=== PATIENT | male | born 1960 | race Hispanic/Latino ===

== ENCOUNTER 2016-09-24 18:59 | Inpatient (IN) ==
[2016-09-24 19:47] LABS: MANUAL DIFF NEEDED? NO
[2016-09-24 19:52] LABS: BASO% 0.4 % (0.0-0.8); EOS# 0.28 X1000 (0.0-0.7); EOS% 2.6 % (0.0-10.0); HEMATOCRIT 28.3 % (42.0-52.0); HEMOGLOBIN 9.4 g/dL (14.0-18.0); IMM GRAN# 0.03 X1000 (0.0-0.04); IMM GRAN% 0.3 % (0.0-0.5); LYMPH# 1.18 X1000 (1.2-3.4); LYMPH% 10.8 % (20.5-51.1); MCHC 33.2 g/dL (33-37); MCV 87.3 FL (81-99); MONO# 0.63 X1000 (0.11-0.59); MONO% 5.8 % (1.7-9.3); MPV 9.2 FL (7.4-10.4); NEUT% 80.1 % (42.2-75.2); PLT 328 X1000 (130-400); RBC 3.24 XMIL (4.7-6.1)
[2016-09-24] MEDS ORDERED: NORCO-5 PO ONE (19:54)
--- NOTE | 2016-09-24 19:54 | PROVIDER DOCUMENTATION ---
HPI-Musculoskeletal Pain/Inj - GENERAL Chief Complaint: Extremity Injury Stated Complaint: RT FT PAIN/INFECTION Time Seen by Provider: 09/24/16 19:12 Source: patient - HX OF PRESENT ILLNESS-MUSKULOSKELTAL Nature of Presenting Problem: 56 y/o male IDDM c/o ulcer on the right great toe after he originally hit it 2 weeks ago and fell, twisting the right foot and hitting the left rib cage. States that a blister then formed on the right great toe, and popped, leaving an open sore. Patient continued wearing steel toed boots and states the lesion began to grow over the past 2 weeks. Put topical antibiotics on it daily , except the past 2 days. States is BG runs in 200s typically. subjective fevers and chills. Denies abdominal pain, n/v/d. States he is also having lateral right foot pain that is sharp, radiates to the ankle when walking on it. Also having pain with deep inspiration in the left ribs. Denies chest pain. Review of Systems - Adult - REVIEW OF SYSTEMS - ADULT Constitutional: reports: see HPI, chills, fever. denies: fatique Eyes: reports: no symptoms reported. denies: blurred vision, double vision, eye pain Ears, Nose, Mouth & Throat: reports: no symptoms reported. denies: ear pain, nose pain, throat pain Cardiovascular: reports: no symptoms reported. denies: chest pain, irregular heart rate, palpitations Respiratory: reports: no symptoms reported. denies: cough, shortness of breath Gastrointestinal: reports: no symptoms reported. denies: abdominal pain, diarrhea, nausea, vomiting Genitourinary: reports: no symptoms reported. denies: dysuria, discharge, frequency, incontinence Musculoskeletal: reports: see HPI, muscle aches Integumentary: reports: see HPI, skin sores/ulcer Neurological: reports: no symptoms reported. denies: headache/migraines Psychiatric: reports: no symptoms reported Endocrine: reports: no symptoms reported Hematologic/Lymphatic: reports: no symptoms reported Allergic/Immunologic: reports: no symptoms reported All Other Systems: Reviewed and Negative Past History - Adult - PAST MEDICAL HISTORY-ADULT Review of Records: reports: Old Records Reviewed, Nursing Assessment Review, Medications Reviewed, Social history reviewed & non-contributory. Major Childhood Illnesses: reports: denies history Cardiovascular: reports: denies history Respiratory: reports: denies history Gastrointestinal: reports: denies history Genitourinary: reports: denies history Musculoskeletal: reports: denies history Neurological: reports: denies history Endocrine/Immune: reports: Diabetes Diabetes controlled by:: Insulin Dependent Other Conditions: reports: denies history - IMMUNIZATION STATUS Childhood Immunizations: See Nurse Assessment Flu Vaccine: See Nurse Assessment - FAMILY HISTORY Family History: reviewed, not pertinent Physical Exam-Injury Related - Physical Exam-Injury Related Initial Vital Signs Reviewed: Yes General Appearance: appears well, alert, no apparent distress Eyes: PERRL/EOMI, pink conjunctivae Head, Ears, Nose, Mouth & Throat: normocephalic/atraumatic, moist mucous membranes Neck: non-tender, full range of motion, supple, normal inspection Respiratory: chest non-tender, lungs clear, normal breath sounds, no pleuratic chest pain, no respiratory distress, no accessory muscle use. negative: respiratory distress, decreased breath sounds, accessory muscle use, crackles, rales, rhonchi, stridor, wheezing Cardiovascular: normal peripheral pulses, regular rate, rhythm Peripheral Pulses: dorsalis-pedis (R): 2+, dorsalis-pedis (L): 2+ Extremity: other (there is a necrotic ulcer on the pad of the right great toe, and a diabetic ulcer on the medial edge of the right great toe) Integumentary: normal color, warm/dry Neurologic: grossly normal, no motor/sensory deficits Psych/Mental Status: normal mood/affect, normal thought content, normal thought process, oriented x 3 - Glascow Coma Score Best Eye Response ([place]): (4) open spontaneously Best Verbal Response ([place]): (5) oriented Best Motor Response ([place]): (6) obeys commands Progress - PLAN OF CARE/RESULTS Progress/Plan/Lab Results: Vital Signs Temp Pulse Resp BP Pulse Ox 09/24/16 19:14 98.8 F 112 H 18 192/92 100 No Known Allergies Allergy (Verified 12/21/14 23:31) Laboratory 09/24/16 09/24/16 09/24/16 19:30 19:30 19:17 WBC 10.95 H RBC 3.24 L Hgb 9.4 L Hct 28.3 L MCV 87.3 MCH 29.0 MCHC 33.2 RDW Std Deviation 13.8 Plt Count 328 MPV 9.2 Immature Gran % (Auto) 0.3 Neut % (Auto) 80.1 H Lymph % (Auto) 10.8 L Campbell % (Auto) 5.8 Eos % (Auto) 2.6 Baso % (Auto) 0.4 Immature Gran # (Auto) 0.03 Neut # (Auto) 8.79 H Lymph # (Auto) 1.18 L Campbell # (Auto) 0.63 H Eos # (Auto) 0.28 Baso # (Auto) 0.04 Sodium 136 Potassium 4.5 Chloride 101 Carbon Dioxide 22 L Anion Gap 13 BUN 32 H Creatinine 2.5 H Estimated GFR/1.73 m2 27 BUN/Creatinine Ratio 13 Glucose 114 H POC Glucose 145 H Calculated Osmolality 280 Calcium 8.6 L Total Bilirubin 0.35 AST 45 H ALT 44 Alkaline Phosphatase 129 H Total Protein 7.4 Albumin 2.5 L Globulin 4.9 Albumin/Globulin Ratio 0.5 Orders Category Date Time Status Saline Loc NOW Care 09/24/16 19:39 Active CHEST-2 VIEWS [RAD] Stat Exams 09/24/16 19:39 Taken TOE(S)-RIGHT [RAD] Stat Exams 09/24/16 19:47 Taken BLOOD CULTURE [BLDCUL] Stat Lab 09/24/16 19:30 Results CBC WITH ELECTRONIC DIFF [HEME] Stat Lab 09/24/16 19:30 Completed COMPREHENSIVE METABOLIC PANEL [CHEM] Stat Lab 09/24/16 19:30 Completed CULTURE [ABSCESS CULTURE INC GRAM STAIN] [RM] Routine Lab 09/24/16 19:45 Results Clonidine [Catapres] Med 09/24/16 20:21 Discontinued 0.1 mg PO NOW ONE Hydrocodone/APAP 5 mg/325 mg [[place]-5] Med 09/24/16 19:54 Discontinued 1 each PO NOW ONE Piperacil/Tazobact 3.375 gm/Ns [Zosyn 3.375 gm/Ns] 50 Med 09/24/16 20:18 Discontinued ml IV NOW - XRAY 1 XRAY: Right XRAY Study: Foot Impression: Abnormal (osteomyelitis of the great toe, per Dr. Vyas, ER prelim) 2 XRAY: Bilateral XRAY Study: Chest Impression: Abnormal (RML infiltrate per Dr. Vyas, ER prelim) - CONSULTS/PCP/HOSPITALIST Notification #1 *Consult/PCP/Hospitalist*: Dr. Loera, hospitalist Time Discussed: 20:59 Reason/Comments: diabetic ulcer with osteomyelitis of the right great toe Consult Disposition: Admit Departure - Departure Time of Disposition Order: 20:19 DIAGNOSIS: Diabetic foot ulcer with osteomyelitis Disposition: ADMITTED INPATIENT 09 Certified Medical Emergency: Emergent Condition: Stable Referrals: None,PCP [Primary Care Provider] - Attestation - Physician/ TAYLOR Attestation Patient care was provided by Advanced Practice Provider:: Yes Advanced Practice Provider:: Kadie Triana Advanced Practice Provider documentation review:: The Mid-level provider documentation, treatment plan and medical decision making was reviewed by the physician who agrees with all treatment and medical decision making by the MLP.
[2016-09-24 20:03] LABS: ALBUMIN 2.5 g/dL (3.5-5.0); CALCIUM 8.6 mg/dL (8.8-10.2); POTASSIUM 4.5 mmol/L (3.5-5.1); TOTAL BILIRUBIN 0.35 mg/dL (0.20-1.00); TOTAL PROTEIN 7.4 g/dL (6.3-8.3)
[2016-09-24] MEDS ORDERED: ZOSYN 3.375 GM/NS 50 ML IV ONE (20:18)
[2016-09-24] MEDS ORDERED: CATAPRES PO ONE (20:21)
[2016-09-24] MEDS ORDERED: NS 1,000 ML IV ONE (21:01)
--- NOTE | 2016-09-24 22:11 | HISTORY AND PHYSICAL ---
CHIEF COMPLAINT: Right great toe infection. HISTORY OF PRESENTING ILLNESS: A 56-year-old male with a history of diabetes mellitus type 1 on insulin, hypertension, apparently has not been seeing a physician, presented to emergency department with complaint of infection on his right great toe. He states that it started about 3- 1/2 weeks ago as a blister and then it opened up because he apparently was working nonstop and standing on his feet for the past 3 weeks. Over the course of several days prior to coming to the hospital, the wound started opening up and became foul smelling. He was seen in the ER, and imaging was done which did show osteomyelitis and due to his presenting symptoms, he would need hospitalization for further management. At the time of my examination, he had denied any headaches, visual changes, nausea, vomiting, diarrhea, fever, chills, chest pain, shortness of breath, hemoptysis or any weight changes but complained of feet swelling and pain in his right great toe. PAST MEDICAL HISTORY: Includes diabetes mellitus type 1 and hypertension. PAST SURGICAL HISTORY: Right foot surgery and appendectomy. ALLERGIES: Steroids. CURRENT MEDICATIONS: As listed in MAR. SOCIAL HISTORY: He denies any history of smoking, alcohol or illicit drug use. FAMILY HISTORY: No history of coronary disease. REVIEW OF SYSTEMS: Twelve point review of systems is as in HPI. Other systems negative. PHYSICAL EXAMINATION: GENERAL: Cooperative, friendly male. He is resting comfortably now. VITAL SIGNS: Temperature 98.8 degrees, pulse 112, respiration 18, blood pressure 192/92, he is saturating 100%. HEENT: Atraumatic, normocephalic. Extraocular movements intact. PERRLA. NECK: Supple. CHEST: Clear to auscultation. CARDIOVASCULAR: Regular rate, rhythm. ABDOMEN: Soft, nontender. Positive bowel sounds. EXTREMITIES: Right great toe seems infected and seems to look ulcerated. : No bladder distention. SKIN: Warm. LABORATORIES AND STUDIES: Sodium 136, potassium 4.5, chloride 101, CO2 22, BUN is 32, creatinine is 2.5. Glucose is 114. WBC 10.95, hemoglobin 9.4, hematocrit 28.3, platelets 328,000. ASSESSMENT: A 56-year-old male with a history of diabetes mellitus type 1 and hypertension presented to emergency department with 3 weeks history of ulceration in his right great toe. He had imaging done, which did show osteomyelitis. Patient will need hospitalization for further management. 1. Right great toe infection/osteomyelitis. 2. Diabetes mellitus type 2. 3. Hypertension. PLAN: 1. We will admit patient to medical floor with telemetry. 2. We will start patient on IV antibiotics and check wound culture. 3. We will consult infectious disease. 4. We will monitor blood glucose and continue patient on sliding scale insulin regimen. 5. Monitor blood pressure. Resume antihypertensive agents. 6. We will put patient on DVT prophylaxis with heparin. 7. Will continue to follow and reassess.
[2016-09-24] MEDS ORDERED: VANCOMYCIN IV PER PHARMACY MISC SCH (22:17)
[2016-09-24] MEDS: NS 1,000 ML IV SCH (23:20)
[2016-09-24] MEDS: INVANZ 1 GM/NS 50 ML IV SCH (23:20)
[2016-09-25] MEDS: VANCOMYCIN 2 GM in NS 500 ML IV SCH (01:15)
[2016-09-25] MEDS: TYLENOL PO PRN ×2 (05:30→16:03)
[2016-09-25] MEDS: NS 1,000 ML IV SCH ×2 (06:35→15:56)
--- NOTE | 2016-09-25 07:52 | Diag Imaging Result Document ---
PROCEDURE NAME: TOE(S)-RIGHT - 09/24/2016 RIGHT GREAT TOE, THREE VIEWS: FINDINGS: There is erosion of the head of the proximal phalanx medially associated with a skin ulcer. There may be sight erosion of the adjacent portion of the distal phalanx. These findings were not present on 01/21/2012. There is healing of the distal fifth metatarsal compared to previous study, at which point it was fractured and eroded. IMPRESSION: Osteomyelitis in the distal proximal phalanx of the great toe.
[2016-09-25] MEDS: HUMULIN R SUBQ SCH ×4 (08:05→20:36)
--- NOTE | 2016-09-25 08:12 | Diag Imaging Result Document ---
PROCEDURE NAME: CHEST-2 VIEWS - 09/24/2016 TWO VIEWS OF THE CHEST: FINDINGS: There is atelectasis present in the middle lobe. Otherwise, the lungs are clear and the heart and pulmonary vascularity are stable in appearance. IMPRESSION: Right middle lobe atelectasis.
[2016-09-25 09:16] LABS: MANUAL DIFF NEEDED? NO
[2016-09-25 09:55] LABS: CALCIUM 7.7 mg/dL (8.8-10.2); POTASSIUM 4.1 mmol/L (3.5-5.1)
[2016-09-25 10:13] LABS: BASO% 0.6 % (0.0-0.8); EOS# 0.41 X1000 (0.0-0.7); EOS% 6.2 % (0.0-10.0); HEMATOCRIT 23.4 % (42.0-52.0); HEMOGLOBIN 7.6 g/dL (14.0-18.0); IMM GRAN# 0.02 X1000 (0.0-0.04); IMM GRAN% 0.3 % (0.0-0.5); LYMPH# 0.91 X1000 (1.2-3.4); LYMPH% 13.8 % (20.5-51.1); MCH 28.5 PG (27-31); MCHC 32.5 g/dL (33-37); MCV 87.6 FL (81-99); MONO# 0.51 X1000 (0.11-0.59); MONO% 7.8 % (1.7-9.3); MPV 9.5 FL (7.4-10.4); NEUT% 71.3 % (42.2-75.2); PLT 225 X1000 (130-400); RBC 2.67 XMIL (4.7-6.1)
[2016-09-25] MEDS: HEPARIN SUBQ SCH ×2 (10:29→20:37)
[2016-09-25] MEDS: NORVASC PO SCH (10:29)
[2016-09-25] MEDS ORDERED: APRESOLINE IV PRN (12:13)
--- NOTE | 2016-09-25 12:32 | PROGRESS NOTE ---
DATE: 09/25/2016 SUBJECTIVE: The patient stated he is feeling a little better today. He denies having any fever or chills. Still having pain in his right foot. OBJECTIVE: Vital signs: Blood pressure 171/93, pulse of 79, respirations 20, temperature of 98 degrees, saturations are 97% on room air. General appearance: Well-developed, well-nourished, male, in no acute distress. HEENT: Anicteric. Clear conjunctivae. Neck: Supple. No JVD. No bruit. Cardiovascular: S1, S2. Normal rate and rhythm. No murmur, rubs, or gallops. Pulmonary: Clear to auscultation bilaterally. GI: Soft, nontender, nondistended. Normoactive bowel sounds. Musculoskeletal: He has right great toe cellulitis, excoriated, and with a foul odor. LABORATORY: Sodium 133, potassium 4.1, chloride 102, bicarb 20, BUN 30, creatinine 2.4, glucose 101. X-ray showed osteomyelitis on the distal phalanx of his right toe. ASSESSMENT AND PLAN: This is a 56-year-old admitted to the hospital for diabetic ulcer and osteomyelitis. 1. Osteomyelitis. Surgery was consulted and culture was obtained. The patient is on broad- spectrum antibiotics. Most likely, he will need amputation of his toe or long-term antibiotics. Will wait for culture. We will consider ID consult if needed. 2. Diabetes type 2, insulin requiring. We will continue sliding scale insulin and diabetic diet. 3. Acute renal failure. Most likely has chronic kidney disease but we do not have a baseline, but most likely at least stage 3 chronic kidney disease. We will continue IV fluid and we will determine the stage later on when his renal function has stabilized. 4. Hypertension. We will continue Norvasc and will add hydralazine p.r.n. for blood pressure since the patient is not able to take diuretics or SOCO inhibitor at this point. 5. Deep vein thrombosis prophylaxis. The patient is on heparin. 6. Code status. The patient is a full code.
[2016-09-25] MEDS: INVANZ 1 GM/NS 50 ML IV SCH (23:02)
[2016-09-26] MEDS: TYLENOL PO PRN
[2016-09-26] MEDS: HUMULIN R SUBQ SCH ×3 (06:25→17:19)
--- NOTE | 2016-09-26 11:24 | CONSULTATION ---
DATE OF CONSULTATION: 09/26/2016 REQUESTING PHYSICIAN: Kendrick Street MD REASON FOR CONSULTATION: Consult concerning right great toe and osteomyelitis. HISTORY OF PRESENT ILLNESS: A 56-year-old general with longstanding diabetes, hypertension, who presented to the emergency department with complaint of infection of the right great toe. He says it initially started as a blister and then opened up. It has been draining non-stop. He was evaluated emergency department by the hospitalist service, admitted, and started on IV antibiotics. He has had imaging suggesting he has osteomyelitis of that toe. He was initially reluctant to have any surgical intervention, but now has agreed to have surgical intervention. When I evaluated the patient, he is complaining of still some foul drainage from it, but no other changes. He does have some discomfort at that area. PAST MEDICAL HISTORY: Diabetes mellitus type 1 and hypertension. PAST SURGICAL HISTORY: Includes previous right foot surgery and appendectomy. ALLERGIES: Reported to steroids. HOME MEDICATIONS: Reviewed. Of note on his MAR, he is on vancomycin. SOCIAL HISTORY: Denies smoking, alcohol, or illicit drugs. FAMILY HISTORY: Reviewed with the patient. No family history of coronary artery disease. REVIEW OF SYSTEMS: A full 10 point review of systems obtained. Negative unless as specified in HPI. PHYSICAL EXAMINATION: Vital Signs: The patient is currently afebrile. Temperature 98.0 degrees, pulse is regular at 83, respiratory nonlabored at 16, blood pressure 174/94, O2 saturation 98% on room air. General examination: No acute distress. Alert, interactive, male who looks his stated age. HEENT: Normocephalic, atraumatic. Pupils equal, round, react to light. Mucous membranes moist. Oropharynx benign. Neck: Supple. Trachea midline. Cardiovascular: Regular rate and rhythm. Lungs: Grossly clear. Abdomen: Soft, nontender, nondistended. Extremities: Right great toe with edema and swelling noted. No open wound. Foul-smelling drainage consistent with infection of the right great toe. Vascular: All extremities perfused. Neurologic: Grossly intact. Skin: Noted above. LABORATORY: Of note, the patient's white blood cell count 6, down from 10 from on admission. Hematocrit 23.4, platelet count 225,000. Remainder of labs reviewed from yesterday. Imaging from yesterday reviewed. His toe x-ray that confirms the osteomyelitis of the distal phalanx of the great toe on the right. ASSESSMENT AND PLAN: A 56-year-old gentleman with longstanding diabetes mellitus, type 1, now with osteomyelitis and gangrene of the right great toe. 1. Gangrene of the right great toe with osteomyelitis. At this time the patient needs amputation. Discussed with the patient. Discussed with him that likely will have to have an open wound which will cause some delay in the wound healing. Discussed this might cause him not to have work for several months. He voiced understanding and wished to proceed with procedure. 2. Multiple medical comorbidities. At this time, being managed by the hospitalist service. I appreciate the consult.
[2016-09-26] MEDS ORDERED: FENTANYL ONE (13:34)
[2016-09-26] MEDS ORDERED: VERSED ONE (13:35)
[2016-09-26] MEDS ORDERED: DIPRIVAN 1% ONE (13:35)
[2016-09-26] MEDS ORDERED: ZOFRAN ONE (13:47)
[2016-09-26] MEDS ORDERED: XYLOCAINE-MPF 2% ONE (13:48)
[2016-09-26] MEDS ORDERED: EPHEDRINE ONE (13:48)
--- NOTE | 2016-09-26 14:03 | OPERATIVE NOTE ---
PROCEDURE DATE: 09/26/2016 PREOPERATIVE DIAGNOSIS: Right great toe gangrene with osteomyelitis. POSTOPERATIVE DIAGNOSIS: Right great toe gangrene with osteomyelitis. PROCEDURES: Right great toe amputation. SURGEON: Eliceo Salas MD. SHINGLE INSPECTOR: None. ANESTHESIA: General endotracheal. INTRAOPERATIVE FINDINGS: As above. SPECIMENS REMOVED: Right great toe. ESTIMATED BLOOD LOSS: 30 mL. BRIEF HISTORY: The patient is a 56-year-old, male with long-standing diabetes. He developed an ulcer wound to his right great toe. It has continued to worsen. He developed osteomyelitis. Given this, we discussed with the patient about amputation. The risks, benefits, alternatives were discussed. He voiced understanding and wished to proceed with procedure. DESCRIPTION OF PROCEDURE: After informed consent was obtained, patient was brought to the operative theatre, transferred to the operating table and placed in the supine position. General endotracheal anesthesia was then performed without complication. A formal time-out was then performed confirming patient, date, procedure. All were in agreement. At that time, attention was given to the right foot. This area was prepped and draped in a sterile fashion after that and after the time-out, we made an incision along the edge of the right great toe and carried down to the subcutaneous tissue to the bone. We took the distal phalanx of the bone at that point, we did have to take some of the metatarsal head proximally with this, given the infection. We removed this with a combination of sharp dissection and bone cutters. Bovied down to healthy bone. We scored this area to promote granulation and closed the area loosely in layers using 3-0 Vicryl and 2-0 nylon for the skin. Hemostasis was achieved with electrocautery. The patient tolerated the procedure well and had a sterile dressing applied. He was transferred back to recovery room in stable condition.
[2016-09-26] MEDS: VANCOMYCIN 2 GM in NS 500 ML IV SCH (15:09)
[2016-09-26] MEDS: HEPARIN SUBQ SCH ×2 (15:27→20:14)
[2016-09-26] MEDS: NORCO-10 PO PRN ×2 (15:27→19:22)
[2016-09-26] MEDS: NORVASC PO SCH (15:28)
[2016-09-26] MEDS: NS 1,000 ML IV SCH ×2 (15:37→18:11)
--- NOTE | 2016-09-26 15:56 | PROGRESS NOTE ---
DATE: 09/26/2016 SUBJECTIVE: The patient just back from the OR for and had the great right toe amputated. He has no complaint. Appears to be comfortable at present. He asked for ice today. He does not want any food. OBJECTIVE: Vital Signs: Blood pressure 160/90, pulse of 90, respirations 16, temperature of 98.7 degrees. Saturation of 99% on room air. General Appearance: Well-developed, well-nourished, male, in no acute distress. HEENT: Anicteric. Clear conjunctivae. Neck: Supple. No JVD. No bruit. Cardiovascular: S1, S2. Normal rate and rhythm. No murmur, rubs, or gallop. Pulmonary: Clear to auscultation bilaterally. GI: Soft, nontender, nondistended. Normoactive bowel sounds. Musculoskeletal: Right foot with dressing in place. LABORATORY: White count 6.58, hemoglobin 7.6, hematocrit of 23.4, platelets 225 ,000. Chemistry: Sodium 133, potassium 4.1, chloride 102, bicarbonate 20. BUN 30, creatinine 2.4 , glucose of 101. ASSESSMENT AND PLAN: This is a 56-year-old, male, with type 2 diabetes uncontrolled presented with right foot diabetic ulcer on the great toe. 1. Great toe ulcer status post amputation of the source, has osteomyelitis. We will continue antibiotics for about 48 hours and then we will stop antibiotics unless the patient has signs or symptoms of bacteremia. Culture is still pending. 2. Diabetes. We will check his A1c. We will continue sliding scale insulin. 3. Positive wound culture. We will continue vancomycin and ertapenem which does not have Pseudomonas coverage. 4. Hypertension. Resume his home medications and hydralazine p.r.n. 5. Chronic kidney disease stage 3. We will continue IV fluid. We will monitor his renal function. 6. Deep vein thrombosis prophylaxis. Put the patient on heparin. CODE STATUS: The patient is a full code. MTDD
[2016-09-26] MEDS: MERREM 500 MG in NS 50 ML IV SCH (18:11)
[2016-09-27] MEDS: HUMULIN R SUBQ SCH ×5 (01:10→21:24)
[2016-09-27] MEDS: MERREM 500 MG in NS 50 ML IV SCH ×2 (01:10→13:26)
[2016-09-27] MEDS: ZOFRAN IV PRN ×2 (01:13→08:11)
[2016-09-27] MEDS: NS 1,000 ML IV SCH ×2 (05:43→16:58)
--- NOTE | 2016-09-27 06:12 | PROGRESS NOTE ---
DATE: 09/27/2016 SUBJECTIVE: Patient doing well after his toe amputation. OBJECTIVE: Vital Signs: Patient is currently afebrile. His vital signs are stable. General: Resting comfortably. No acute distress. Cardiovascular: Regular rate and rhythm. Lungs: Grossly clear. Abdomen: Soft, nontender, nondistended. Extremities: Amputation site with dressing in place. ASSESSMENT AND PLAN: A 56-year-old, status post right great toe amputation. Postoperative day: At this time, continue routine postoperative care. We will take down his dressing on postoperative day 3 and evaluate the wound; otherwise, continue current treatment. My partner, Dr. Moreno, will follow over the weekend.
[2016-09-27] MEDS: NORVASC PO SCH (08:41)
[2016-09-27] MEDS: HEPARIN SUBQ SCH ×2 (08:41→21:23)
[2016-09-27 10:54] LABS: MANUAL DIFF NEEDED? NO
[2016-09-27 11:18] LABS: HEMOGLOBIN A1C 6.3 % (4.8-6.0)
[2016-09-27 11:23] LABS: BASO% 1.6 % (0.0-0.8); EOS# 0.43 X1000 (0.0-0.7); EOS% 8.9 % (0.0-10.0); HEMATOCRIT 25.7 % (42.0-52.0); HEMOGLOBIN 8.2 g/dL (14.0-18.0); IMM GRAN# 0.04 X1000 (0.0-0.04); IMM GRAN% 0.8 % (0.0-0.5); LYMPH# 0.91 X1000 (1.2-3.4); LYMPH% 18.8 % (20.5-51.1); MCH 28.4 PG (27-31); MCHC 31.9 g/dL (33-37); MCV 88.9 FL (81-99); MONO# 0.31 X1000 (0.11-0.59); MONO% 6.4 % (1.7-9.3); MPV 9.4 FL (7.4-10.4); NEUT% 63.5 % (42.2-75.2); PLT 263 X1000 (130-400); RBC 2.89 XMIL (4.7-6.1)
[2016-09-27 11:35] LABS: CALCIUM 8.2 mg/dL (8.8-10.2); POTASSIUM 5.2 mmol/L (3.5-5.1)
--- NOTE | 2016-09-27 11:40 | PROGRESS NOTE ---
DATE: 09/27/2016 SUBJECTIVE: The patient is feeling better today. He refused his lab work this morning. The patient has a tendency to refuse treatment, but overall the patient is feeling better. OBJECTIVE: Vital Signs: His blood pressure 181/100, pulse of 78, respirations 16, temperature 97.8 degrees. Saturation 100% on room air. General appearance: Obese male in no acute distress. HEENT: Anicteric sclera conjunctivae. Neck: Supple. No JVD. No bruit. Cardiovascular: S1, S2. Normal rate and rhythm. No murmur, rubs, or gallops. Pulmonary: Clear to auscultation bilaterally. GI: Soft, nontender, nondistended. Normoactive bowel sounds. Musculoskeletal: No clubbing, cyanosis. No edema. The right foot has a dressing in place. No bleed-through observed. Morning lab is still pending. ASSESSMENT AND PLAN: This is a 56-year-old male admitted to the hospital for diabetic foot ulcer and osteomyelitis. 1. Right great toe has osteomyelitis status post toe amputation. The patient is feeling better. Surgery is following. They plan to take down the dressing on Friday and take a look at the wound to see if any further debridement is needed. We will continue IV antibiotics until Friday, we should be able to stop antibiotics at that point unless the patient becomes bacteremic. 2. Noncompliant to medical treatment. I talked to the patient about the necessity of getting his lab work in the morning so we can adjust his home medications. He has renal failure stage 3. He agrees to draw his blood with chemistries, A1c and CBC. 3. Hypertension. Blood pressure is not controlled. He is on Norvasc 10. We will start the patient on hydralazine 50 three times a day and we will consider Imdur if it is not controlled. 4. Deep vein thrombosis prophylaxis. The patient is on heparin. CODE STATUS: The patient is a full code.
[2016-09-27] MEDS: APRESOLINE PO SCH ×2 (13:25→21:24)
[2016-09-27] MEDS: NORCO-10 PO PRN (19:50)
[2016-09-27] MEDS: ZOSYN 3.375 GM/NS 50 ML IV SCH (21:23)
[2016-09-28] MEDS: VANCOMYCIN 2 GM in NS 500 ML IV SCH (00:16)
[2016-09-28] MEDS: ZOSYN 3.375 GM/NS 50 ML IV SCH ×3 (05:02→20:14)
[2016-09-28] MEDS: NS 1,000 ML IV SCH (05:02)
[2016-09-28] MEDS: APRESOLINE PO SCH ×3 (05:03→20:14)
[2016-09-28] MEDS: HUMULIN R SUBQ SCH ×4 (07:31→20:14)
[2016-09-28] MEDS: HEPARIN SUBQ SCH ×2 (09:14→20:14)
[2016-09-28] MEDS: NORVASC PO SCH (09:14)
[2016-09-28] MEDS: ZOFRAN IV PRN (09:19)
--- NOTE | 2016-09-28 11:43 | PROGRESS NOTE ---
DATE: 09/28/2016 SUBJECTIVE: Mr. Mcneill is a 56-year-old male, who is status post right great toe amputation. He still has some swelling of his right lower extremity, but the wound is intact and appears to be clean, and I changed the dressing today. His heart rate is 75, blood pressure 159/81, O2 saturation is 100%. He has no work of breathing. He is voiding without difficulty. He is afebrile on IV Zosyn and vancomycin. His white blood cell count is normal. Hematocrit is 26%. Electrolytes: BUN and creatinine 23 and 2.2. His serum glucoses have been adequate. His hemoglobin A1c is 6.3. PLAN: We will continue IV antibiotics and no weightbearing, right great toe, with daily dressing changes.
[2016-09-28] MEDS: NORCO-10 PO PRN (14:00)
--- NOTE | 2016-09-28 14:25 | PROGRESS NOTE ---
DATE: 09/28/2016 SUBJECTIVE: The patient is feeling better. No fever. No chills. OBJECTIVE: Vital Signs: Blood pressure 159/81, pulse of 75, respiration 18, temperature of 98 degrees, saturation 100% on room air. General Appearance: Well-developed, well-nourished, male, in no acute distress. HEENT: Anicteric. Clear conjunctivae. Neck: Supple. No JVD. No bruit. Cardiovascular: S1, S2, normal rate and rhythm. No murmur, rubs, or gallops. Pulmonary: Clear to auscultation bilaterally. GI: Soft, nontender, nondistended. Normoactive bowel sounds. Musculoskeletal: No clubbing, cyanosis, or edema. Dressing on the right side on the right toe is still in place. No surrounding erythema. LABORATORY: Today his white count 4.85, hemoglobin 8.2, hematocrit of 25.7, platelets of 263,000. Sodium of 135, potassium 5.2, chloride 104, bicarbonate 20, BUN 23, creatinine 2.2. ASSESSMENT AND PLAN: This is a 56 year male, admitted to the hospital for great right toe osteomyelitis and infection. 1. Diabetic foot ulcer, unstageable, status post amputation. Will finish his antibiotics tomorrow. If he continues well early in the week he can go home from our standpoint, without antibiotics. The source of infection was removed and the patient has been on antibiotics for more than 72 hours. 2. Chronic kidney disease stage 3. His creatinine is stable at 2.2. Will avoid at this point. We will continue to monitor the patient while on room air. 3. Hypertension. Blood pressure is not controlled. We will add hydralazine and will continue to monitor. 4. Diabetes type 2, is well controlled. His A1c is 6.3. Continued the sliding scale insulin for now. 5. Deep vein thrombosis prophylaxis with Lovenox. CODE STATUS: The patient is a full code.
[2016-09-29] MEDS: APRESOLINE PO SCH ×3 (05:28→21:21)
[2016-09-29] MEDS: ZOSYN 3.375 GM/NS 50 ML IV SCH (05:28)
[2016-09-29] MEDS: HUMULIN R SUBQ SCH ×4 (07:06→21:00)
[2016-09-29] MEDS: HEPARIN SUBQ SCH ×2 (09:27→21:21)
[2016-09-29] MEDS: NORVASC PO SCH (09:27)
[2016-09-29] MEDS: LEVAQUIN PO SCH (12:10)
[2016-09-29 13:39] LABS: MANUAL DIFF NEEDED? NO
[2016-09-29 13:51] LABS: BASO% 0.9 % (0.0-0.8); EOS# 0.32 X1000 (0.0-0.7); EOS% 5.6 % (0.0-10.0); HEMATOCRIT 26.8 % (42.0-52.0); HEMOGLOBIN 8.8 g/dL (14.0-18.0); LYMPH# 0.84 X1000 (1.2-3.4); LYMPH% 14.8 % (20.5-51.1); MCH 28.9 PG (27-31); MCHC 32.8 g/dL (33-37); MCV 88.2 FL (81-99); MONO# 0.26 X1000 (0.11-0.59); MONO% 4.6 % (1.7-9.3); MPV 9.3 FL (7.4-10.4); NEUT% 74.1 % (42.2-75.2); PLT 280 X1000 (130-400); RBC 3.04 XMIL (4.7-6.1)
--- NOTE | 2016-09-29 14:02 | PROGRESS NOTE ---
DATE: 09/29/2016 Mr. Mcneill' right great toe amputation site is dressed. The dressing is dry. We are continuing IV antibiotics. We are trying to keep weight off his foot. We will continue wound care and IV antibiotics for now.
[2016-09-29 14:05] LABS: CALCIUM 8.5 mg/dL (8.8-10.2); POTASSIUM 3.8 mmol/L (3.5-5.1)
--- NOTE | 2016-09-29 14:19 | PROGRESS NOTE ---
DATE: 09/29/2016 SUBJECTIVE: The patient doing well. He still refused having a blood draw. No acute event reported. The patient stated he is feeling much better. OBJECTIVE: Vital signs: Blood pressure 173/88, pulse of 89, respirations 20, temperature 98.4 degrees, saturations of 98% room air. General appearance: Well-developed, well-nourished, male in no acute distress. HEENT: Anicteric sclerae, conjunctivae. Neck: Supple. No JVD. No bruit. Cardiovascular: S1, S2. Normal rate and rhythm. No murmur, rubs, or gallops. Pulmonary: Clear to auscultation bilaterally. GI: Soft, nontender, nondistended. Normoactive bowel sounds. Musculoskeletal: No clubbing, cyanosis, or edema. Right toe dressing is still in place. Again patient refused lab for the past 2 days. ASSESSMENT AND PLAN: This is a 56-year-old male admitted to the hospital for right toe osteomyelitis status post amputation. 1. Right toe osteomyelitis. Wound culture grew out strep B and Pseudomonas both of which are sensitive to Levaquin. The patient has received vancomycin and Zosyn for 3 days and will continue Levaquin for another few days. We should be able to stop the Levaquin since the source of infection was removed. 2. Diabetes type 2 well controlled. His A1c is only 6.5. Will continue to monitor. Sliding scale insulin for now. 3. Deep vein thrombosis prophylaxis. Will continue heparin. 4. Hypertension. Will continue hydralazine and Norvasc.
[2016-09-30] MEDS: APRESOLINE PO SCH ×3 (05:03→21:12)
[2016-09-30] MEDS: ZOFRAN IV PRN (05:07)
--- NOTE | 2016-09-30 06:30 | PROGRESS NOTE ---
DATE: 09/30/2016 SUBJECTIVE: Patient doing well. No major issues. Reviewed notes from the weekend. OBJECTIVE: Vital Signs: Patient is currently afebrile. His vital signs have been stable. General Examination: No acute distress. Alert and interactive, male. Looks stated age. Cardiovascular: Regular rate and rhythm. Lungs: Grossly clear. Extremities: Dressing in place to the right lower extremity amputation site. Some swelling noted to the extremity. ASSESSMENT AND PLAN: A 56-year-old, male status post amputation of his right great toe for osteomyelitis. Right great toe amputation. At this time, the patient is on appropriate antibiotics. Wound is healing. At this time, disposition and discharge per primary care team but could likely be discharged and would soon follow up with me in the office. He needs to keep that area protected and pressure off that toe.
[2016-09-30] MEDS: HUMULIN R SUBQ SCH ×3 (06:44→18:53)
[2016-09-30 07:39] LABS: CALCIUM 8.4 mg/dL (8.8-10.2)
[2016-09-30] MEDS: HEPARIN SUBQ SCH ×2 (11:00→21:13)
[2016-09-30] MEDS: NORVASC PO SCH (11:00)
[2016-09-30] MEDS ORDERED: G.I. COCKTAIL PO ONE (18:38)
--- NOTE | 2016-09-30 18:44 | PROGRESS NOTE ---
DATE: 09/30/2016 SUBJECTIVE: The patient is resting comfortably in bed. He has no complaints at this time. OBJECTIVE: Vital Signs: Temperature 97.6 degrees, blood pressure 165/82, heart rate 85, respirations 18, O2 saturations 100% on room air. General: This is a morbidly obese male, lying in bed, in no acute distress. Head: Normocephalic, atraumatic. Heart: S1, S2 normal. Regular rate and rhythm. Lungs: Clear to auscultation bilaterally. No wheezing, rales or rhonchi. Abdomen: Positive bowel sounds. Soft, nontender, nondistended. Extremities: The right foot is wrapped in dressing. LABS: Sodium 137, potassium 4, chloride 106, CO2 21, BUN 18, creatinine 2, glucose 118. ASSESSMENT AND PLAN: 1. Right toe osteomyelitis status post right great toe amputation. Continue on oral Levaquin. General Surgery is following. 2. Acute kidney injury on chronic kidney disease stage 3. This appears to be improving slowly. We will continue to monitor closely. 3. Accelerated hypertension. We will increase the patient's hydralazine dosage to 75 mg p.o. every 8 hours. 4. Diabetes mellitus type 2. Continue on sliding scale insulin. 5. Deep vein thrombosis prophylaxis. Continue on heparin 5000 units subcutaneous every 12 hours. 6. Disposition. We will plan to discharge the patient once cleared by the general surgeon.
[2016-09-30] MEDS: PROTONIX PO SCH (21:15)
[2016-10-01] MEDS: NORCO-10 PO PRN (00:09)
[2016-10-01] MEDS: APRESOLINE PO SCH ×2 (05:26→13:27)
[2016-10-01] MEDS: PROTONIX PO SCH ×2 (05:27→09:36)
[2016-10-01] MEDS: HUMULIN R SUBQ SCH ×3 (05:27→11:08)
[2016-10-01 07:19] LABS: CALCIUM 8.8 mg/dL (8.8-10.2); POTASSIUM 4.3 mmol/L (3.5-5.1)
--- NOTE | 2016-10-01 08:23 | PROGRESS NOTE ---
DATE: 10/01/2016 SUBJECTIVE: Patient doing well. OBJECTIVE: Vital Signs: Patient is currently afebrile. His vital signs are stable. General Examination: No acute distress. Extremities: Amputation site on the right great toe healing well. Dressing taken down. No signs of active infection. There is some swelling noted to the extremity but otherwise no acute problems. ASSESSMENT AND PLAN: A 56-year-old, male status post right great toe amputation. Postoperative state. At this time, patient is likely okay to be discharged home. We will ask [facility] to see the patient for potential diabetic shoe inserts and toe amputation shoe inserts. Hopefully, they can see the patient before he is discharged today. I have already placed a prescription for pain medicine in the patient's chart. He can follow up with me in the office in 1-2 weeks.
[2016-10-01 08:45] VITALS: BP 158/90
[2016-10-01] MEDS: NORVASC PO SCH (09:29)
[2016-10-01] MEDS: HEPARIN SUBQ SCH (09:29)
[2016-10-01] MEDS: LEVAQUIN PO SCH (11:05)
[2016-10-01] MEDS: TYLENOL PO PRN (11:09)
--- NOTE | 2016-10-01 17:18 | DISCHARGE SUMMARY ---
ADMISSION DATE: 09/24/2016 DISCHARGE DATE: 10/01/2016 CONSULTATION: Dr. Eliceo Salas with General Surgery. PERTINENT PROCEDURES: A right great toe amputation performed by Dr. Salas. Right great toe x-ray showed osteomyelitis in the distal proximal phalanx of the great toe. DISCHARGE DIAGNOSES: 1. Right toe osteomyelitis status post right great toe amputation. Patient will continue on oral Levaquin. Being followed by General Surgery. 2. Acute kidney injury on chronic kidney disease stage 3. Slowly improving. 3. Accelerated hypertension. Patient's hydralazine has been increased. 4. Diabetes mellitus type 2. Continue home medications. HOSPITAL COURSE: Briefly, Mr. Mcneill is a 56-year-old male with a history of diabetes mellitus type 1 on insulin, hypertension. He presented to the emergency department with complaint of infection on his right great toe. He states this started about 3 and half weeks ago with a blister and it opened up. Because he was working nonstop and standing on his feet for the past 3 weeks over the course of the last several days prior to coming to the hospital the wound started opening up and had a foul smell. In the ED imaging was done which did show osteomyelitis. The patient was admitted and started on IV antibiotics with a wound culture check as well as a consultation for General Surgery. Patient did undergo a right great toe amputation by Dr. Salas as well as continued on IV antibiotics. The patient's Gram stain did grow out group B pseudomonas aeruginosa. The patient's antibiotics were switched from vancomycin and Zosyn to IV Levaquin. He remained on this for a couple of days. He has been released per his general surgeon with instructions to follow up with him. He is to keep that area protected and to keep pressure off that toe. Vital signs at time of discharge, temperature is 97.4 degrees, heart rate 81, respirations 18, blood pressure 163/83, O2 is 99% on room air. DISCHARGE DIET: Diabetic. DISCHARGE MEDICATIONS: 1. Humulin 70/30, 30 units subcutaneously q.a.m. 2. Humulin 70/30, 12 units subcu q.p.m. 3. Thorndike 10 one each p.o. q.4 hours p.r.n. 4. Apresoline 75 mg p.o. q.8 hours. 5. Levaquin 650 mg p.o. every 48 hours for 7 days. 6. Norvasc 10 mg p.o. daily. FOLLOWUP: The patient is being discharged home. He will need to follow up with Dr. Eliceo Salas. The patient does need to keep that area protected as well as keeping pressure off that toe. Patient can return to the ED for any worsening symptoms. He is to complete his full course of antibiotics. Discharge time 30 minutes. Dictated by AMANDA Talavera for Merissa Platt MD
== END 2016-10-01 20:30 | disposition home or self-care (01) | DRG 256 ==
LOC: ED 18:59 → EDIPHOLD 21:32 → 3N 09-25 13:51
PROVIDERS: ATTEND Internal Medicine
PROC: 0Y6Q0Z0 Detachment at Left 1st Toe, Complete, Open Approach (ICD-10-PCS; principal; 2016-09-26 12:28)
DX: E10.52 Type 1 diabetes mellitus with diabetic peripheral angiopathy with gangrene (principal); M86.8X7 Other osteomyelitis, ankle and foot; E10.22 Type 1 diabetes mellitus with diabetic chronic kidney disease; E10.621 Type 1 diabetes mellitus with foot ulcer; N17.9 Acute kidney failure, unspecified; N18.3 Chronic kidney disease, stage 3 (moderate); E10.69 Type 1 diabetes mellitus with other specified complication; E10.65 Type 1 diabetes mellitus with hyperglycemia; I12.9 Hypertensive chronic kidney disease with stage 1 through stage 4 chronic kidney disease, or unspecified chronic kidney disease; L97.519 Non-pressure chronic ulcer of other part of right foot with unspecified severity; B96.5 Pseudomonas (aeruginosa) (mallei) (pseudomallei) as the cause of diseases classified elsewhere; Z91.19 Patient's noncompliance with other medical treatment and regimen
CPT/HCPCS: 71020; 73660; 80048; 80053; 82948; 83036; 85025; 87040; 87070; 87077; 87186; 88305; 96361; 96365; 96366; 96367; 96372; J1335; J1644; J2185; J2250; J2405; J2543; J3010; J3370; J7030; J7040

== ENCOUNTER 2017-01-03 17:13 | Inpatient (IN) ==
--- NOTE | 2017-01-03 17:51 | Diag Imaging Result Doc PS360 ---
EXAM: CHEST-2 VIEWS HISTORY: cough/congestion TECHNIQUE: COMPARISON: 09/24/2016 FINDINGS: The lungs are well expanded. The heart is not enlarged. The vessels are not distended. There are no infiltrates. No pleural effusions. IMPRESSION: No acute abnormality. Electronically signed by Vikas Palmer 01/03/2017 5:48 PM
[2017-01-03] MEDS ORDERED: ASPIRIN PO STA (18:28)
[2017-01-03] MEDS ORDERED: ASPIRIN ONE (18:49)
[2017-01-03] MEDS ORDERED: ASPIRIN PO ONE (18:50)
[2017-01-03 19:18] LABS: MANUAL DIFF NEEDED? NO
[2017-01-03 19:22] LABS: BASO% 0.4 % (0.0-0.8); EOS# 0.24 X1000 (0.0-0.7); HEMATOCRIT 30.1 % (42.0-52.0); HEMOGLOBIN 10.5 g/dL (14.0-18.0); LYMPH# 1.71 X1000 (1.2-3.4); LYMPH% 14.3 % (20.5-51.1); MCH 30.3 PG (27-31); MCHC 34.9 g/dL (33-37); MCV 86.7 FL (81-99); MONO# 1.15 X1000 (0.11-0.59); MONO% 9.6 % (1.7-9.3); MPV 9.8 FL (7.4-10.4); NEUT% 73.7 % (42.2-75.2); PLT 283 X1000 (130-400); RBC 3.47 XMIL (4.7-6.1)
[2017-01-03 19:30] LABS: INR 1.13; PTT 32.7 Seconds (22.0-36.0)
[2017-01-03 19:47] LABS: CALCIUM 8.6 mg/dL (8.8-10.2); MAGNESIUM 1.9 mg/dL (1.5-2.7); POTASSIUM 3.7 mmol/L (3.5-5.1); TOTAL BILIRUBIN 0.72 mg/dL (0.20-1.00); TOTAL PROTEIN 7.6 g/dL (6.3-8.3)
--- NOTE | 2017-01-03 19:48 | PROVIDER DOCUMENTATION ---
HPI-Chest Pain - General Chief Complaint: Cold Symptoms Stated Complaint: COUGH/CHEST CONGESTION Time Seen by Provider: 01/03/17 17:35 Source: patient Allergies/Adverse Reactions: Patient Allergies Allergy/AdvReac Type Severity Reaction Status Date / Time Androgenic Anabolic Steroid Allergy Unknown Verified 01/03/17 18:45 diclofenac [From Cataflam] Allergy ITCHING Verified 01/03/17 18:45 morphine Allergy SWELLING Verified 01/03/17 18:45 Home Medications: Home Medication List Medication Instructions Recorded Confirmed Last Taken Type Insulin Humulin 70/30 [Humulin 12 unit SUBQ QPM 09/25/16 01/03/17 09/24/16 History 70/30] Insulin Humulin 70/30 [Humulin 30 unit SUBQ QAM 09/25/16 01/03/17 09/24/16 History 70/30] Amlodipine [Norvasc] 10 mg PO DAILY #30 tablet 10/01/16 01/03/17 01/03/17 12:00 Rx - History of Present Illness-CP Nature of Presenting Problem: 56 yo male presents with chest pain, SOB, cough, intermittent fever x 2 days. Was seen at [facility] yesterday but was unhappy with his care, states that no one told him what was going on and he waited for 3 hours. So he left. Still having pain so came here. Location: reports: central (and left side) Chest Pain Radiation: reports: arms (both arms) Quality of Pain: reports: cramping, sharp, stabbing Severity in ED: moderate Onset/Duration: 2 days ago Timing: still present Context/Activities at Onset: reports: none Modifying Factors: improves with: nothing Associated Symptoms: reports: abdominal pain, edema, fever/chills, headache, nausea, shortness of breath, vomiting. denies: back pain, diaphoresis, dizziness, fatigue, heartburn, syncope Nitro Today/Relief: no nitro taken today Aspirin Treatment Today: 325 mg x 1 Prior Chest Pain/Cardiac Workup: reports: angina (in the past, saw a morning nanny. says no hx of VT or other cardiac problems other than HTN) Similar Symptoms Previously?: No Recently Seen Here or By Another Healthcare Provider: Yes ([facility]) Review of Systems - Adult - REVIEW OF SYSTEMS - ADULT Constitutional: reports: fever, fatique. denies: chills Eyes: denies: decreased vision, blurred vision Ears, Nose, Mouth & Throat: reports: sinus problem, throat pain. denies: ear pain Cardiovascular: reports: chest pain, orthopnea, poor circulation. denies: syncope Respiratory: reports: cough, shortness of breath. denies: wheezing Gastrointestinal: reports: abdominal pain, nausea, vomiting. denies: diarrhea Hematologic/Lymphatic: reports: blood clots (DVT) Past History - Adult - PAST MEDICAL HISTORY-ADULT Review of Records: reports: Old Records Reviewed, Nursing Assessment Review, Medications Reviewed Major Childhood Illnesses: reports: denies history Cardiovascular: reports: denies history Respiratory: reports: denies history Gastrointestinal: reports: denies history Obstetrical/Gynecological: reports: denies history Genitourinary: reports: denies history Musculoskeletal: reports: denies history Neurological: reports: denies history Endocrine/Immune: reports: Diabetes Other Conditions: reports: denies history - IMMUNIZATION STATUS Childhood Immunizations: See Nurse Assessment Flu Vaccine: See Nurse Assessment - FAMILY HISTORY Family History: reviewed, not pertinent - SOCIAL HISTORY Smoking: non-smoker Physical Exam-General - PHYSICAL EXAM-ADULT Initial Vital Signs Reviewed: Yes (tachycardic) - CONSTITUTIONAL General Appearance: alert, moderate distress, obese - EYES Eyes: PERRL/EOMI, pink conjunctivae. negative: sclera injected, scleral icterus - HEAD, EARS, NOSE, MOUTH & THROAT HENMT: normocephalic/atraumatic - NECK Neck: full range of motion, supple, normal inspection - RESPIRATORY Respiratory: no accessory muscle use, crackles. negative: chest non-tender ( left sided and central chest pain with palpation, mild), lungs clear, no respiratory distress, rales, rhonchi, stridor, wheezing - CARDIOVASCULAR Cardiovascular: regular rate, rhythm, no edema, no gallop, no JVD, no murmur - SKIN Integumentary: normal color, warm/dry - NEUROLOGIC Neurologic: quencher operator II-XII nml as tested, grossly normal - PSYCHIATRIC Psych/Mental Status: normal mood/affect, normal thought content, normal thought process Progress - PLAN OF CARE/RESULTS Progress/Plan/Lab Results: Vital Signs - 8 hr 01/03/17 17:22 01/03/17 20:25 Temperature 98.9 F Pulse Rate 106 H 101 H Respiratory Rate 20 12 Blood Pressure 141/85 152/85 O2 Sat by Pulse Oximetry 100 93 L Laboratory Results - last 24 hr 01/03/17 01/03/17 01/03/17 19:00 19:00 19:00 WBC 11.93 H RBC 3.47 L Hgb 10.5 L Hct 30.1 L MCV 86.7 MCH 30.3 MCHC 34.9 RDW Std Deviation 13.8 Plt Count 283 MPV 9.8 Immature Gran % (Auto) 0.0 Neut % (Auto) 73.7 Lymph % (Auto) 14.3 L Hunt % (Auto) 9.6 H Eos % (Auto) 2.0 Baso % (Auto) 0.4 Immature Gran # (Auto) 0.00 Neut # (Auto) 8.78 H Lymph # (Auto) 1.71 Hunt # (Auto) 1.15 H Eos # (Auto) 0.24 Baso # (Auto) 0.05 PT INR PTT (Actin FS) D-Dimer 0.93 H Sodium 136 Potassium 3.7 Chloride 98 Carbon Dioxide 23 L Anion Gap 15 BUN 42 H Creatinine 3.7 H Estimated GFR/1.73 m2 17 BUN/Creatinine Ratio 11 Glucose 177 H Calculated Osmolality 287 Calcium 8.6 L Magnesium 1.9 Total Bilirubin 0.72 AST 65 H ALT 41 Alkaline Phosphatase 128 H Creatine Kinase 2212 H Creatine Kinase Index 0.2 CK-MB (CK-2) 3.83 Troponin T Ezt-B-Fyyvoyjkgso Pept Total Protein 7.6 Albumin 3.0 L Globulin 4.6 Albumin/Globulin Ratio 0.7 Lipase 23 01/03/17 01/03/17 01/03/17 19:00 19:00 19:00 WBC RBC Hgb Hct MCV MCH MCHC RDW Std Deviation Plt Count MPV Immature Gran % (Auto) Neut % (Auto) Lymph % (Auto) Hunt % (Auto) Eos % (Auto) Baso % (Auto) Immature Gran # (Auto) Neut # (Auto) Lymph # (Auto) Hunt # (Auto) Eos # (Auto) Baso # (Auto) PT 12.0 H INR 1.13 PTT (Actin FS) 32.7 D-Dimer Sodium Potassium Chloride Carbon Dioxide Anion Gap BUN Creatinine Estimated GFR/1.73 m2 BUN/Creatinine Ratio Glucose Calculated Osmolality Calcium Magnesium Total Bilirubin AST ALT Alkaline Phosphatase Creatine Kinase Creatine Kinase Index CK-MB (CK-2) Troponin T 0.548 H* Lat-F-Gpwrkqhrchc Pept 6452 H Total Protein Albumin Globulin Albumin/Globulin Ratio Lipase 01/03/17 20:20 WBC RBC Hgb Hct MCV MCH MCHC RDW Std Deviation Plt Count MPV Immature Gran % (Auto) Neut % (Auto) Lymph % (Auto) Hunt % (Auto) Eos % (Auto) Baso % (Auto) Immature Gran # (Auto) Neut # (Auto) Lymph # (Auto) Hunt # (Auto) Eos # (Auto) Baso # (Auto) PT INR PTT (Actin FS) D-Dimer Sodium Potassium Chloride Carbon Dioxide Anion Gap BUN Creatinine Estimated GFR/1.73 m2 BUN/Creatinine Ratio Glucose Calculated Osmolality Calcium Magnesium Total Bilirubin AST ALT Alkaline Phosphatase Creatine Kinase 1856 H Creatine Kinase Index CK-MB (CK-2) Troponin T Poq-R-Vsfowzdrorx Pept Total Protein Albumin Globulin Albumin/Globulin Ratio Lipase Orders Category Date Time Status Cardiac Monitoring DIRECTED Care 01/03/17 18:28 Active Nursing- MD Consult Request ROUTINE Care 01/03/17 20:08 Active Saline Loc NOW Care 01/03/17 18:28 Active Physician/Provider Consults Routine Cons 01/04/17 07:00 Ordered LUNG SCAN / VQ [NM] Stat Exams 01/03/17 20:07 Ordered cxr [CHEST-2 VIEWS] [RAD] Stat Exams 01/03/17 17:25 Completed CBC WITH ELECTRONIC DIFF [HEME] Stat Lab 01/03/17 19:00 Completed CK PROFILE [SP CHEM] Stat Lab 01/03/17 19:00 Completed CK PROFILE [SP CHEM] Stat Lab 01/03/17 20:20 Results COMPREHENSIVE METABOLIC PANEL [CHEM] Stat Lab 01/03/17 19:00 Completed D-DIMER [CHEM] Stat Lab 01/03/17 19:00 Completed LIPASE [CHEM] Stat Lab 01/03/17 19:00 Completed MAGNESIUM [CHEM] Stat Lab 01/03/17 19:00 Completed PRO B-NATRIURETIC PEPTIDE Stat Lab 01/03/17 19:00 Completed PROTIME WITH INR [COAG] Stat Lab 01/03/17 19:00 Completed PTT [COAG] Stat Lab 01/03/17 19:00 Completed TROPONIN T Stat Lab 01/03/17 19:00 Completed TROPONIN T Stat Lab 01/03/17 20:20 Received 0.9% Sodium Chloride Inj [Ns] 1,000 ml Med 01/03/17 20:07 Active IV 75 mls/hr Aspirin Med 01/03/17 18:49 Discontinued 325 mg .ROUTE .STK-MED ONE Aspirin Med 01/03/17 18:50 Discontinued 325 mg PO NOW ONE Aspirin Med 01/03/17 18:28 Discontinued 325 mg PO STAT STA Furosemide [Lasix] Med 01/03/17 19:52 Discontinued 40 mg IV NOW ONE Hydrocodone/APAP 10 mg/325 mg [[place]-10] Med 01/03/17 19:53 Discontinued 1 each PO NOW ONE Nitroglycerin [Nitroglycerin 0.1MG/Hr Patch] Med 01/03/17 20:49 Discontinued 1 each TD NOW ONE Ondansetron [Zofran] Med 01/03/17 19:53 Discontinued 8 mg IV NOW ONE EKG [EKG] Stat Ther 01/03/17 18:28 Ordered EKG [EKG] Stat Ther 01/03/17 19:57 Ordered 2003 - Took over care from Agustín Yun PA-C. I am concerned about possible NSTEMI but there is a hx of renal disease so I am not sure what his baseline troponin may be. Regardless, given the chest pain I will discuss c cardiology for admission. Dr. Geiger in agreement c this plan. Result Diagrams: 01/03/17 19:00 01/03/17 19:00 - REASSESSMENT Reassessment #1 Time Reassessed: 18:50 (Pt brought back to [facility] but c/o chest pain, SOB, vomiting , fevers. Discussed with Michael valiente sending pt to main ED for monitoring and workup. ) Reassessment #2 Time Reassessed: 19:48 (Troponin elevated, as well as D Dimer. Concern for NSTEMI. Michael Villalta at bedside for eval, recommend transfer to [place] for cardiology work up. Started pain medication, pt allergic ot Morphine, states he has taken [place] in the past. Gave medication for nausea to keep meds down. ) - XRAY 1 XRAY Study: Chest XRAY Interpretation: nad - CONSULTS/PCP/HOSPITALIST Notification #1 *Consult/PCP/Hospitalist*: Dr. Daly Time Discussed: 20:06 Consult Disposition: other (Admit to hospitalist service. Will consult on this case.) #2 Consult: Dr. Loera Time Discussed: 20:51 Consult Disposition: Admit - CHANGE OF SHIFT REPORT (ED Provider) Report Given and Care Transferred to:: Michael Villalta Time of Transfer: 19:58 Items Pending: Labs, Physician Consult/Arrival Departure - Departure Date of Disposition Decision: 01/03/17 Time of Disposition Decision: 20:52 DIAGNOSIS: Acute kidney injury, Chest pain at rest, Orthopnea, Elevated troponin Disposition: ADMITTED INPATIENT 09 Certified Medical Emergency: Emergent Condition: Stable Referrals and Follow-Ups: None,PCP [Primary Care Provider] - - Critical Care Note This patient required my direct & personal management of CC.: Yes Total Time (mins): 20 Critical Care Statement: This patient required my direct personal management to treat or rule out processes, the absence of which, could potentiallly result in sudden, clinically significant life or limb threatening deterioration. Attestation - Physician/ TAYLOR Attestation Patient care was provided by Advanced Practice Provider:: Yes Advanced Practice Provider:: Davey Villalta Advanced Practice Provider documentation review:: The Mid-level provider documentation, treatment plan and medical decision making was reviewed by the physician who agrees with all treatment and medical decision making by the MLP. The physician spent face to face time with patient:: Yes Advanced Practice Provider documentation review:: The physician spent face to face time with this patient and agrees with all MLP documentation, treatment, and medical decision making by the MLP. See provider notes for further information.
[2017-01-03] MEDS ORDERED: LASIX IV ONE (19:52)
[2017-01-03] MEDS ORDERED: NORCO-10 PO ONE (19:53)
[2017-01-03] MEDS ORDERED: ZOFRAN IV ONE (19:53)
[2017-01-03 20:06] LABS: CK INDEX 0.2 (0.0-2.5); CK-MB 3.83 ng/mL (0.0-5.0)
[2017-01-03] MEDS ORDERED: NS 1,000 ML IV SCH (20:07)
[2017-01-03] MEDS ORDERED: NITROGLYCERIN 0.1MG/HR PATCH TD ONE (20:49)
[2017-01-03 21:12] LABS: CK INDEX 0.2 (0.0-2.5); CK-MB 3.53 ng/mL (0.0-5.0)
--- NOTE | 2017-01-03 22:08 | Diag Imaging Result Doc PS360 ---
EXAM: LUNG SCAN / VQ HISTORY: Poss PE TECHNIQUE: 39 mCi technetium DTPA given for the ventilation images. 6.3 mCi technetium MAA given for the perfusion images. COMPARISON: Compared to a plain film chest from 01/03/2017 FINDINGS: There are no wedge shaped perfusion defects. No ventilation perfusion mismatches. IMPRESSION: Low probability for pulmonary emboli. Electronically signed by Vikas Palmer 01/03/2017 10:06 PM
--- NOTE | 2017-01-03 22:17 | HISTORY AND PHYSICAL ---
CHIEF COMPLAINT: Chest pain for 2 days. HISTORY OF PRESENTING ILLNESS: A 56-year-old male with a history of diabetes mellitus type 2, hypertension, hyperlipidemia, had presented to emergency department with 2 days history of having chest pain. He described as pressure-like and sometimes stabbing and states that he was short of breath. He was evaluated in the ER and it was noted that his troponins and other cardiac enzymes were elevated. His case apparently was discussed with cardiology quality control microbiologist by ER physician and it was thought that we will be admitted to [facility] for further evaluation and management. At the time of my examination he denied any headache, vision changes, fevers, chills, hemoptysis, melena, weight changes but complained of chest pain, shortness of breath. PAST MEDICAL HISTORY: Includes diabetes mellitus type 2, hypertension, hyperlipidemia. PAST SURGICAL HISTORY: Right great toe amputation, appendectomy. ALLERGIES: To androgenic anabolic steroids, diclofenac and morphine. CURRENT MEDICATIONS: As listed in the MAR. SOCIAL HISTORY: He denies any history of smoking, alcohol or illicit drug use. FAMILY HISTORY: No history of coronary disease. REVIEW OF SYSTEMS: Twelve point review of systems is as in HPI. Other systems negative. PHYSICAL EXAMINATION: GENERAL: Cooperative, friendly obese male. He is resting comfortably now. VITAL SIGNS: Temperature 98.9 degrees, pulse 106, respirations 20, blood pressure 141/85, he is saturating 100%. HEENT: Atraumatic, normocephalic. Extraocular movements intact. PERRLA. NECK: No masses. CHEST: Bibasilar rales. CARDIOVASCULAR: Regular rate and rhythm. ABDOMEN: Soft, obese, positive bowel sounds. EXTREMITIES: +1 edema. NEURO: He is awake, alert, oriented x3. : No bladder distention. SKIN: Warm. LABORATORIES AND STUDIES: D-dimer is 0.93. WBCs 11.93, hemoglobin 10.5, hematocrit 30.1, platelets 283,000. Sodium 136, potassium 3.7, chloride 98, CO2 23, BUN is 42, creatinine 3.7, glucose 177, troponin is 0.548, ProBNP is 6452. ASSESSMENT: A 56-year-old male with a history of diabetes mellitus type 2 and hypertension had presented to emergency department with 2 days history of persistent chest pain. He was evaluated in the emergency room and was found to have elevated cardiac enzymes with suspicion of possible myocardial infarction. Patient will need hospitalization further management. 1. Acute congestive heart failure exacerbation unspecified. 2. Chest pain. 3. Elevated troponin suspected non-Q-wave myocardial infarction. 4. Diabetes mellitus type 2. 5. Hypertension. 6. Acute on chronic kidney disease. 7. Mild elevation D-dimer, will need to rule out pulmonary embolus. PLAN: 1. We will admit patient to [facility]. 2. Continue gentle diuresis Lasix. 3. Patient with strict I's and O's. 4. Continue to trend cardiac enzymes and put patient on nitroglycerine paste and given pain control. 5. We will consult Cardiology. 6. We will monitor blood glucose and put patient on sliding scale insulin regimen. 7. We will monitor blood pressure. Resume antihypertensive agents. 8. We will monitor his renal function. 9. V/Q scan was ordered to rule out PE and will check on it once report is available. 10. Put patient DVT prophylaxis with heparin for now. 11. Will continue follow and reassess. cc: Kurt Loera MD
[2017-01-03] MEDS ORDERED: TYLENOL PO PRN (23:07)
[2017-01-03] MEDS ORDERED: ZOFRAN IV PRN (23:07)
[2017-01-04] MEDS: LASIX IV SCH ×3 (00:05→22:29)
[2017-01-04] MEDS: DILAUDID IV PRN ×2 (00:05→16:57)
[2017-01-04] MEDS ORDERED: PNEUMOVAX 23 IM ONE (00:49)
[2017-01-04] MEDS: HUMULIN R SUBQ SCH ×4 (06:09→20:54)
[2017-01-04] MEDS: PRILOSEC PO SCH (06:09)
[2017-01-04 06:53] LABS: MANUAL DIFF NEEDED? NO
[2017-01-04 06:55] LABS: BASO% 0.2 % (0.0-0.8); EOS# 0.11 X1000 (0.0-0.7); HEMOGLOBIN 9.6 g/dL (14.0-18.0); IMM GRAN# 0.03 X1000 (0.0-0.04); IMM GRAN% 0.3 % (0.0-0.5); LYMPH# 0.81 X1000 (1.2-3.4); LYMPH% 7.7 % (20.5-51.1); MCHC 34.3 g/dL (33-37); MCV 87.5 FL (81-99); MONO# 0.81 X1000 (0.11-0.59); MONO% 7.7 % (1.7-9.3); NEUT% 83.1 % (42.2-75.2); PLT 244 X1000 (130-400)
--- NOTE | 2017-01-04 08:29 | PROGRESS NOTE ---
DATE: 01/04/2017 SUBJECTIVE: This is a 56-year-old with history of diabetes mellitus type 2, hypertension, hyperlipidemia. He presented with chest pain for 2 days. He had some pressure and pain in the left side of his chest. It radiated down to the left side as well. He also feels like his chest is tied and has been coughing more in the last couple of days. Described as sometimes as stabbing and states that he is short of breath in the emergency room. Noted that his troponin and CPKs were elevated. He is admitted now to rule out coronary insufficiency. PAST MEDICAL HISTORY: Diabetes mellitus, hypertension, hyperlipidemia. OBJECTIVE: General: Today, was lying on his left side. He states that makes his chest feel better. Vital Signs: He remained afebrile his temp is 98.3 degrees, pulse 93, respirations 20, blood pressure 145/74. Weight 272 pounds. I am not sure how accurate that was as weight coming in was 290, but today was 272. Urine output 700 mL. Lungs: Clear in all lung lee. Cardiovascular: Regular rate without murmur or S3. Abdomen: Soft. Skin: Warm and dry. DIAGNOSTIC DATA: CPK 1676 and then 1483. Troponin 0.456 and 0.402. He had a V/Q scan, which was low probability. Chest x-ray unremarkable. ASSESSMENT AND PLAN: 1. Chest pain. Somewhat atypical but elevated troponin and CPK. On EKG, I do not see ST-segment deviations but concerned about [id number] infarction. Cardiology to see. We will continue. He is getting aspirin. He is on heparin 5000 units subcutaneous q.12 hours. Blood pressure looks okay. He is on amlodipine 10 mg a day. 2. Diabetes mellitus type 2. We will pattern his blood sugars. Blood sugar was 231 this morning. 3. Hypercholesterolemia. Low-density lipoprotein was 177. High-density lipoprotein is 36. I do think he would benefit from a statin. Probably would benefit from an echocardiogram too, which is ordered. cc: Yazan Rubio MD
[2017-01-04] MEDS: ASPIRIN PO SCH (08:33)
[2017-01-04] MEDS: LIPITOR PO SCH (08:33)
[2017-01-04] MEDS: NORVASC PO SCH (08:33)
[2017-01-04] MEDS: NS 1,000 ML IV SCH ×2 (08:33→22:30)
[2017-01-04] MEDS: HEPARIN SUBQ SCH ×2 (08:33→20:53)
--- NOTE | 2017-01-04 12:01 | CONSULTATION ---
DATE OF CONSULTATION: 01/04/2017 REASON FOR CONSULTATION: Cardiology was consulted for abnormal cardiac enzymes and chest pain. HISTORY OF PRESENT ILLNESS: Mr. Corby Mcneill is a 56-year-old gentleman who was in [facility] ER. He had some chest pain and cough, and subsequently he came to the emergency room here and was admitted. Patient has been having episodes of chest pain for the last 2 days, stabbing in character, and associated with some cough and expectoration. Chest x-ray was unremarkable. He had abnormal cardiac enzymes with troponin abnormal, and renal function as well. V/Q scan was done, which revealed low probability of pulmonary embolism. His electrocardiogram revealed normal sinus rhythm. There were no ST-T changes to suggest ischemia. His CK MB was normal. He has known diabetes and hypertension. He says he has been taking his medications regularly. Chest pain is not associated with any diaphoresis. He describes it as sharp, stabbing in character, and some shortness of breath. There are no palpitations. There is no dizziness or syncope. REVIEW OF SYSTEMS: A 14-point review of systems was done.Gastrointestinal: There is no history of nausea, vomiting, diarrhea. There is no history of hemoptysis or melena. Central nervous system: No focal weakness to suggest a CVA or TIA. Genitourinary: There is no dysuria or hematuria. PAST MEDICAL HISTORY: 1. Diabetes. 2. Hypertension. 3. Hyperlipidemia. 4. Amputation of right toe. 5. Appendectomy. ALLERGIES: Allergic to diclofenac, morphine. HOME MEDICATIONS: Insulin 70/30, 30 units a.m. and 12 units p.m. Amlodipine 10 mg a day. SOCIAL HISTORY: He denies smoking or drug abuse. PHYSICAL EXAMINATION: Vital Signs: Blood pressure was 140/85. Cardiovascular: Normal jugular venous pressure. First and second heart sounds were heard. There is no S3 gallop. Neck: There no thyromegaly. There is no carotid bruit. Respiratory: A few scattered wheezes. Abdomen: Soft, obese, nontender. There was no guarding or rigidity. Bowel sounds were heard. Central nervous system: Alert and oriented, and was moving all 4 extremities. Extremities: Examination of extremities revealed no pedal edema. HEENT: Atraumatic, normocephalic. Pupils were equal and reacting to light. LABORATORIES: D-dimer 0.293. WBC 11.93, hemoglobin 10.5, hematocrit 30, platelets 283,000. Sodium 136, potassium 3.7, BUN 42, creatinine 3.7. Troponin 0.548. proBNP 6452. ASSESSMENT AND PLAN: 1. Mr. Corby Mcneill is a 56-year-old gentleman with history of hypertension, diabetes, and renal insufficiency, who was admitted with chest pain and cough. His chest x- ray was unremarkable. He was ruled out for pulmonary embolus by lung V/Q scan. As far as his renal function is concerned, his BUN was 42 and creatinine was 3.7. He has been having renal insufficiency. His creatinine was 2. The last time he had lab work done on 09/24/2016, it was 2.5. As far as cardiac enzymes are concerned, the abnormal troponin. We do not have an old troponin to compare with. Given this abnormal troponin in the setting of worsening renal insufficiency, to make sure that there is no ischemia, we will set him up to undergo a Lexiscan Cardiolite stress test to assess for ischemia. His MB was normal. 2. We will get an echocardiogram to assess cardiac and valvular function. 3. His chest x-ray was unremarkable. He has had cough and some the scattered wheeze. We will get a CT scan done without contrast to make sure there is no airspace disease, and for the present continue with his current medications. We will check a BMP and in the morning would recommend Renal consultation as well. Thank you for the consult. We will follow hospital course. cc: Jarrod aDly MD
--- NOTE | 2017-01-04 15:45 | Diag Imaging Result Doc PS360 ---
EXAM: CT THORAX W/O CONTRAST HISTORY: cough expect TECHNIQUE: Dose reduction technique COMPARISON: None. FINDINGS: No pleural effusions. Borderline mildly prominent heart. No thoracic aortic aneurysm. There are small mediastinal lymph nodes. There are tiny patchy/nodular infiltrates bilaterally. These are most prominent in the lower lobes. No bronchiectasis. No distinct mass identified. Moderate coronary artery calcifications in the left anterior descending artery. IMPRESSION: Multifocal small patchy/nodular infiltrates Electronically signed by Vikas Palmer 01/04/2017 3:43 PM
[2017-01-05] MEDS: HUMULIN R SUBQ SCH ×4 (06:12→21:47)
[2017-01-05] MEDS: PRILOSEC PO SCH (06:12)
[2017-01-05 06:18] LABS: POTASSIUM 3.5 mmol/L (3.5-5.1)
[2017-01-05 06:30] LABS: FREE T4 1.42 ng/dL (0.93-1.70)
[2017-01-05] MEDS: HEPARIN SUBQ SCH ×2 (08:00→21:47)
[2017-01-05] MEDS: NORVASC PO SCH (08:00)
[2017-01-05] MEDS: ASPIRIN PO SCH (08:00)
[2017-01-05] MEDS: LIPITOR PO SCH (08:00)
--- NOTE | 2017-01-05 09:56 | PROGRESS NOTE ---
DATE: 01/05/2017 SUBJECTIVE: Mr. Mcneill was sleeping sound and appears comfortable. Breathing comfortably. Easy to arouse. He is not having any chest pain at present. OBJECTIVE: Vital signs: Temp 99.2 degrees, pulse 98, respirations 19, blood pressure 164/85. Eyes: Pupils are equal, round. Lungs: Clear in all lung lee. Cardiovascular: Regular rhythm and rate without murmur or S3. Abdomen: Soft. Skin: Warm and dry. : Urine output 3200 mL. LAB: Blood sugar is 231, 160, 147. Had a CT of his chest done yesterday, multifocal, small, patchy nodular infiltrates. ASSESSMENT AND PLAN: 1. Chest pain. Plan is to do a Lexiscan nuclear cardiac scan to look for possible coronary ischemia. His troponins were elevated. 2. Renal insufficiency. His lab this morning, creatinine is 3.8 and BUN 55. Will continue give to give him some fluid, normal saline. I suspect we will need to get an ultrasound of his kidneys. Ask nephrology to assist in his workup. 3. CT scan showed some nodular densities, multifocal, small, patchy nodular infiltrates. We will continue to follow. No sign clinically of having a pulmonary infection. May ask pulmonary to evaluate as well. cc: Yazan Rubio MD
[2017-01-05] MEDS: NS 1,000 ML IV SCH ×2 (12:30→17:26)
--- NOTE | 2017-01-05 13:35 | ECHO REPORT ---
ORDER DATE: 01/03/2017 ECHOCARDIOGRAPHIC MEASUREMENTS: 1. Interventricular septum 1.4 2. Left ventricular posterior wall 1.2. 3. Diastolic diameter 5.0. 4. Left atrium 4.6. 5. Aorta 3.9. FINDINGS: 1. Normal left ventricular cavity size. Estimated ejection fraction of 55% to 60%. 2. Aortic valve leaflets are trileaflet. 3. Pulmonic valve not well visualized. 4. Mitral valve was normal. 5. Tricuspid valve was normal. 6. There was mild mitral regurgitation. 7. Mild tricuspid regurgitation. Peak velocity across the tricuspid valve was 3 m/sec. Pulmonary artery systolic pressure of 46-50 mmHg. There is left atrial enlargement. 8. Peak velocity across the aortic valve less than 2 m/sec. 9. By Doppler studies there is no aortic stenosis or regurgitation. 10. There is no pericardial effusion or obvious intracardiac mass or thrombus seen. 11. Technically suboptimal study. cc: MD Kurt Santana MD
--- NOTE | 2017-01-05 13:58 | Diag Imaging Result Doc PS360 ---
EXAM: US RENAL 2 (RETROPER) COMPLETE HISTORY: elevated creatinine TECHNIQUE: COMPARISON: None. FINDINGS: The right kidney measures 13.3 x 5.6 x 5.0 cm. Normal renal echogenicity and cortical thickness. No renal stone or hydronephrosis. No renal mass. The urinary bladder is distended and appears normal. Left kidney measures 13.4 x 5.3 x 6.4 cm. Normal renal echogenicity and cortical thickness. No renal stone or hydronephrosis. No renal mass. IMPRESSION: Normal renal ultrasound. Electronically signed by Vikas Palmer 01/05/2017 1:55 PM
[2017-01-05 16:21] LABS: UR CREAT RANDOM 91.9 mg/dL (14-26); UR PROT RANDOM > 600.0 mg/dL
--- NOTE | 2017-01-05 16:25 | CONSULTATION ---
DATE OF CONSULTATION: 01/05/2017 REFERRING PHYSICIAN: Dr. Rubio. CHIEF COMPLAINT: Chest pain. HISTORY OF PRESENT ILLNESS: This is a 56-year-old male with a past medical history of diabetes, hypertension, hyperlipidemia, who presented with a 2 day history of chest pain, described as pressure and stabbing, that was intermittently associated with shortness of breath. He denies any fever, chills, hemoptysis, headache, syncope. REVIEW OF SYSTEMS: A 10-point review of systems was conducted. Pertinent noted on the HPI, otherwise noncontributory. PAST MEDICAL HISTORY: As mentioned in HPI, otherwise noncontributory. PAST SURGICAL HISTORY: Right great toe amputation and appendectomy. ALLERGIES: Androgenic-anabolic steroids, diclofenac, morphine. SOCIAL HISTORY: Denies use of tobacco, alcohol, or illicit drugs. FAMILY HISTORY: Noncontributory. ACTIVE MEDICATIONS: Tylenol, Norvasc, aspirin, Lipitor, Lasix, heparin, Dilaudid, Humulin R, Prilosec, Zofran. PHYSICAL EXAMINATION: Vital Signs: Temperature 99.2, blood pressure 164/85, heart rate 98, respiratory rate 19, oxygen saturation 97%. General: Awake, alert, no acute distress noted. HEENT: Normocephalic and atraumatic. PERRL. Cardiovascular: Regular rate and rhythm. S1, S2 present. Chest: Reduced entry. Abdomen: Nontender. Neurologic: No focal deficits. LABS AND INVESTIGATIONS: Sodium 138, potassium 3.5, chloride 100, CO2 21, anion gap 17, BUN 55, creatinine 3.8, glucose 144. Chest CT shows multifocal small patchy nodular infiltrates. ASSESSMENT AND PLAN: This is a 56-year-old male with a past medical history as mentioned in HPI that presented to the hospital initially with chest pain of a 2-day history, described as pressure. The patient's troponin and CPK were both elevated. Continue pattern fingersticks with sliding scale insulin for diabetes, supplemental oxygen, heparin for DVT prophylaxis, and Prilosec for GI prophylaxis. Further recommendations pending diagnostic studies. Pulmonary nodules are non-specific and can be observed Thank you for the courtesy of this consult. Dictated by AMANDA Balbuena for Harmony Hazel MD cc: AMANDA Balbuenar, MD MTDD
--- NOTE | 2017-01-05 18:27 | CONSULTATION ---
DATE OF CONSULTATION: 01/05/2017 REASON FOR ADMISSION: Chest pain associated with cough for 2 days. REASON FOR CONSULTATION: Acute kidney injury on chronic kidney disease. CONSULTING PHYSICIAN: Dr. Rubio. HISTORY OF PRESENT ILLNESS: Mr. Mcneill is a 56-year-old male with a history of diabetes mellitus type 2 and hypertension. Patient had presented to [facility] Emergency Department with 2 days of having chest pain, productive cough and decreased appetite associated with nausea, no emesis. Patient stated that he had pressure-like sometimes stabbing midsternal chest pain associated with shortness of breath. He was evaluated in the ED and was found to have elevated troponins and cardiac enzymes. They did a V/Q scan which was negative. He denied any fever or chills. No hemoptysis. No melena. No recent weight changes. Patient states that he has chronic kidney disease he was told in 2008 though he does not remember at what stage or what his last creatinine levels were. PAST MEDICAL HISTORY: Includes diabetes mellitus type 2, hypertension, hyperlipidemia, CKD unknown stage. PAST SURGICAL HISTORY: Right great toe amputation with an appendectomy. SOCIAL HISTORY: He denies any history of smoking, alcohol or illicit drug use. FAMILY HISTORY: No kidney disease. No coronary disease. No stroke. CURRENT ALLERGIES: He is allergic to androgenic anabolic steroids, diclofenac and morphine. HOME MEDICATIONS: Insulin 70/30 both a.m. and p.m. and Norvasc. REVIEW OF SYSTEMS: Times 10 with pertinent positives listed above in the HPI. VITAL SIGNS: Most recent his temperature 99.2 degrees, blood pressure 164/85, heart rate 98, respirations are 20. He is currently on 2 L nasal cannula. Last recorded saturation is 96%. He has had 240 in, 200 out today though he has had greater out yesterday in last 24 hours. LABORATORY DATA: Sodium 138, potassium 3.5, chloride 100, CO2 21, BUN 55, creatinine 3.8, glucose 144, anion gap 17, calcium 8, phosphorus 1.9, albumin 3. White count 10.53, hemoglobin 9.6, hematocrit 28, platelet count 244,000. He has a TSH of 0.11, free T4 of 1.42, magnesium 1.9. His troponin last was 0.374 with positive CPKs last being 1298. His urine electrolytes are pending. Renal ultrasound shows the right kidney measuring 13.3 with the left measuring 13.4. He had a lung V/Q scan as mentioned low probability. Chest CT without contrast shows patchy nodular infiltrates. It is noted in the previous history his baseline creatinine was 1.9-2.2 last measured in September 2016. PHYSICAL EXAMINATION: General: This is a 56-year-old male. He is currently resting in bed. He is in no acute distress. Skin: Warm and dry. HEENT: Normocephalic, atraumatic. Conjunctiva is pale. He has NIRAV. Mucous membranes are moist. Neck: Supple. Trachea midline. Unable to determine JVD due to lying position with patient not turning over during exam. Cardiovascular: He is regular rate and rhythm. He is sinus rhythm on the monitor. No appreciable murmur or gallop. Lungs: Clear to auscultation anterior though he had bibasilar crackles to the posterior bases. Continues on O2. Equal excursion. Abdomen: Obese, soft, nontender. Positive bowel sounds. Extremities: Trace to 1+ edema. Neurological: Alert and oriented x3. Genitourinary: Not inspected, patient is voiding. ASSESSMENT AND PLAN: 1. Acute on chronic kidney disease. Patient has a baseline creatinine of 1.9-2.2. It is now elevated at 3.8 with an increase in the last 24 hours. Again, we will check urine electrolytes. He is in negative fluid balance. Ultrasound is normal. Adequate urine out. We will continue to evaluate and check labs in the a.m. 2. Chest pain with congestive heart failure with exacerbation. Cardiology is following. 3. Electrolytes. These are stable. 4. Acid-base balance. Patient has a mild anion gap acidosis. 5. Anemia. This is low but stable. 6. Hypertension. This continues to be slightly elevated. Patient continues with congested cough followed by primary care team. I would like to thank you for allowing us to follow with this patient. Dictated by AMANDA Carrasco for Carlos Ruth MD cc: AMANDA Carrasco MD
[2017-01-06] MEDS: DUONEB (A & A) INH PRN (02:35)
[2017-01-06] MEDS: ROCEPHIN 1 GM/NS 1 GM/50 ML IVPB IV SCH (02:38)
[2017-01-06] MEDS: NS 1,000 ML IV SCH ×2 (02:38→16:55)
--- NOTE | 2017-01-06 03:54 | PROGRESS NOTE ---
DATE: 01/04/2017 ADDENDUM: Note, his creatinine on presentation was 3.7. His hemoglobin A1c was 6.3, blood sugars 177. This morning's sugar was 200. We do need to pattern his sugar, but he also has an anemia, normocytic that is there. So, we need to also focus on his renal function right now. He is getting some fluids. Encourage p.o. intake. I did start him on Lipitor 40 mg a day. cc: Yazan Rubio MD
[2017-01-06] MEDS: HUMULIN R SUBQ SCH ×4 (06:04→20:00)
[2017-01-06] MEDS: PRILOSEC PO SCH (06:04)
[2017-01-06 06:13] LABS: CALCIUM 8.1 mg/dL (8.8-10.2); MAGNESIUM 1.9 mg/dL (1.5-2.7); POTASSIUM 3.4 mmol/L (3.5-5.1)
--- NOTE | 2017-01-06 07:43 | EKG Report ---
Test Performed on : 01/03/2017 6:23:01 PM Test Reason : No ORder in Precog Blood Pressure : / mmHG Vent. Rate : 100 BPM Atrial Rate : 100 BPM P-R Int : 160 ms QRS Dur : 094 ms QT Int : 364 ms P-R-T Axes : 017 008 037 degrees QTc Int : 469 ms Normal sinus rhythm. Minimal voltage criteria for LVH, may be normal variant Nonspecific ST abnormality Abnormal ECG No previous ECGs available Unconfirmed Result
--- NOTE | 2017-01-06 08:22 | PROGRESS NOTE ---
DATE: 01/06/2017 SUBJECTIVE: He states that he is still short of breath. Chest pain is better. Still coughing quite a bit. PHYSICAL EXAMINATION: Vital Signs: Temperature 98.9 degrees, pulse 107, respirations 20, blood pressure 167/83. CVP appears to be less than 6 cm. Respiratory: Lungs are clear anterior and posterior. Cardiovascular Examination: Regular rhythm and rate without murmur or S3. Abdomen: Soft. Skin: Is warm and dry. Is and Os: Urine output 2700 mL. LAB: Reviewed from yesterday. Hematocrit of 28. Chemistry: Sodium 140, potassium 3.4, chloride 102, bicarb 20, BUN 52, creatinine 3, blood sugar 150, 189, 146, 156. Renal ultrasound done this morning, normal renal ultrasound. ASSESSMENT AND PLAN: 1. Chest pain. Plan to do Lexiscan nuclear cardiac scan today. 2. Renal insufficiency. Suspect acute on chronic. Creatinine has come down to 3. Continue the normal saline at present. I have asked nephrology to help. 3. CT scan showed nodular densities, patchy nodular infiltrates. Pulmonary to assess. Still coughing. Still feels short of breath. 4. Review of his orders. He is on ceftriaxone 1 g intravenous every 24 hours, Prilosec 20 mg by mouth daily, normal saline at 75 mL an hour, Lasix 40 mg intravenous daily, Lipitor 40 mg daily, aspirin 325 mg a day, Norvasc 10 mg a day. Repeat a chest x-ray today. cc: Yazan Rubio MD
[2017-01-06] MEDS ORDERED: LEXISCAN ONE (09:37)
--- NOTE | 2017-01-06 11:08 | PROGRESS NOTE ---
DATE: 01/06/2017 TIME SEEN: 0735 SUBJECTIVE: Mr. Mcneill is sitting on the side of the bed. He states that he continues to be weak with increased cough. Denies chest pain. Positive for lower extremity swelling , though he states that this has improved since his hospitalization. OBJECTIVE: Vital Signs: His most recent vital signs, his temperature is 98.2 degrees, blood pressure 127/98, heart rate 100, respirations are 20. He is on 2 L nasal cannula. Last recorded saturation is 98%. He has had 0 in. He has had 1900 out. He does remain in a slight positive fluid balance today. Laboratory Data: Sodium 140, potassium 3.4, chloride is 102, CO2 20, BUN 52, creatinine 3, glucose 146, anion gap is 18, calcium is 8.1, magnesium 1.9. Patient's last hemoglobin was 9.6 on the . Physical Examination: General: This is a 56-year-old, male. He is resting quietly in bed. He is in no acute distress. Skin: Warm and dry. HEENT: Normocephalic, atraumatic. Conjunctivae are pale. He has NIRAV. Mucous membranes are moist. Neck: Supple. Trachea midline. No JVD in the upright position. Cardiovascular: He appears in regular rate and rhythm. He has an S4. Lungs: He has diffuse crackles bilaterally. He continues with a nonproductive cough. Equal excursion on O2. Abdomen: Large, round, soft, nontender. Positive bowel sounds. Genitourinary: Not inspected. Patient has been voiding adequate amounts. Extremities: He has 1+ edema. Patient continues with positive varicose veins with positive venostasis evident. No clubbing or cyanosis. Neurological: He is alert and oriented x3. Able to assist with exam. ASSESSMENT AND PLAN: 1. Acute on chronic kidney disease. Patient's creatinine has improved. It is now down to 3.3 in the last 24 hours. His urine studies indicate large proteinuria. He remains in a negative fluid balance at this time. No indications for intervention. We will continue to monitor labs. 2. Electrolytes, acid-base balance. These are stable. 3. Anemia. This is low but stable. 4. Hypertension. This continues elevated, though more than likely related to patient's continued cough. He remains on renal dosed antibiotics. 5. Fluid volume overload with congestive heart failure. This is followed by cardiology. I would to thank you for allowing us to follow with this patient. Seen, data reviewed, discussed with Vandana Peraza on 01/06/17. I agree with the above assessment and plan of care. rg Dictated by AMANDA Carrasco for Carlos Ruth MD cc: AMANDA Carrasco MD [facility]
[2017-01-06] MEDS: HEPARIN SUBQ SCH ×2 (11:19→20:00)
[2017-01-06] MEDS: LIPITOR PO SCH (11:19)
[2017-01-06] MEDS: ASPIRIN PO SCH (11:19)
[2017-01-06] MEDS: NORVASC PO SCH (11:19)
[2017-01-06] MEDS: LASIX IV SCH (11:20)
--- NOTE | 2017-01-06 14:23 | Diag Imaging Result Document ---
PROCEDURE NAME: MYOCARDIAL PERF SCAN, STR/REST - 01/06/2017 INDICATION: Chest pain with abnormal cardiac enzymes. PROCEDURES PERFORMED: 1. Lexiscan stress. 2. One-day stress-rest myocardial perfusion imaging. PROCEDURE IN DETAIL: Mr. Mcneill was brought to the nuclear laboratory and had a resting study with injection of 15.5 mCi of technetium-99m sestamibi with usual imaging protocol utilized. He subsequently was brought back and had a Lexiscan stress and at peak stress was injected with 46.2 mCi of technetium-99m sestamibi with usual imaging protocol utilized. FINDINGS: LEXISCAN STRESS RESULTS: 1. The baseline EKG demonstrates sinus rhythm rate of 98 beats per minute. 2. Lexiscan stress did not clearly demonstrate any evidence of ischemic related EKG changes. Occasional PVCs were identified during the course of the study. PERFUSION IMAGING RESULTS: 1. No evidence of abnormal extracardiac uptake. 2. TID ratio 0.96. 3. Perfusion imaging shows a moderate-sized severe intensity fixed defect located in the inferior apical, inferior mid, inferior base. This defect is fixed and moderate to severe in intensity consistent with scar. 4. Reduced ejection fraction of 35% with an end-diastolic volume of 194, end-systolic volume of 126. Inferior akinesis is noted along with LV dilatation. cc: MD Jarrod Ag MD
[2017-01-07] MEDS: ROCEPHIN 1 GM/NS 1 GM/50 ML IVPB IV SCH (01:54)
[2017-01-07] MEDS: PRILOSEC PO SCH (06:02)
[2017-01-07] MEDS: HUMULIN R SUBQ SCH ×4 (06:02→20:03)
[2017-01-07] MEDS: NS 1,000 ML IV SCH (06:02)
[2017-01-07 08:16] LABS: ALBUMIN 2.3 g/dL (3.5-5.0); CALCIUM 7.9 mg/dL (8.8-10.2); POTASSIUM 3.3 mmol/L (3.5-5.1)
[2017-01-07] MEDS ORDERED: VISINE OPH DROPS BOTH EYES PRN (08:40)
[2017-01-07] MEDS: DUONEB (A & A) INH PRN ×4 (08:42→23:50)
[2017-01-07] MEDS ORDERED: POTASSIUM CHLORIDE 20% LIQUID PO ONE (09:21)
[2017-01-07] MEDS: LIPITOR PO SCH (09:45)
[2017-01-07] MEDS: NORVASC PO SCH (09:45)
[2017-01-07] MEDS: ASPIRIN PO SCH (09:45)
[2017-01-07] MEDS: HEPARIN SUBQ SCH ×2 (09:46→20:03)
[2017-01-07] MEDS: LASIX IV SCH (09:46)
--- NOTE | 2017-01-07 09:55 | PROGRESS NOTE ---
DATE: 01/07/2017 SUBJECTIVE: Mr. Mcneill is feeling a little better. He is coughing up, seems to be looser. He is having less discomfort. OBJECTIVE: He remains afebrile. Temperature 98.7 degrees, pulse 89, respirations 12, blood pressure 175/92. Blood pressures have arranged between 127 to 178/67 to 98. Lungs are clear anterolateral. Cardiovascular: Regular rhythm and rate without murmur or S3. Abdomen is soft. Skin is warm and dry. Urine output was over 2 L. LABORATORY DATA: Electrolytes from this morning: Sodium 138, potassium 3.3 chloride 103. BUN 39, creatinine 2.6, so the creatinine has come down some more. Blood sugar 184, 154, 151. His myocardial perfusion scan which was done yesterday, EKG demonstrates sinus rhythm, 98 beats per minute. It did not clearly demonstrate any evidence of ischemia related to EKG changes. On the imaging study, no evidence of abnormal extracardiac uptake. T.i.d. ratio was 0.96. Perfusion imaging showed moderate size severely intense fixed defect located in the inferior apical inferior mid and inferior base. Defect is fixed and [id number] intensity. Reduced ejection fraction 35% with an end-diastolic volume of 194, end systolic volume of 126. Inferior akinesis noted with LV dilatation. ASSESSMENT AND PLAN: 1. Chest pain. Lexiscan shows a fixed inferior defect. Also, suggest ischemic cardiomyopathy with a reduced ejection fraction I suspect in the right coronary distribution. 2. Renal insufficiency. Serum creatinine is going down. It seems to be responding to fluids. 3. CT scan showed nodular densities and nodular infiltrates treating for pneumonia, and this seemed to be improving. Continue present antibiotics. We will discuss with Cardiology. He may need a left heart catheterization at some point at this time. We will supplement his potassium. cc: Yazan Rubio MD
--- NOTE | 2017-01-07 10:58 | PROGRESS NOTE ---
DATE: 01/07/2017 TIME SEEN: 0800. SUBJECTIVE: Mr. Mcneill is resting quietly in bed. He is in no acute distress. His skin is warm and dry. The patient denies chest pain or increased work of breathing. OBJECTIVE: Vital signs: His most recent vital signs, temperature 97.5 degrees , blood pressure 178/82, heart rate 89, respirations 18. He is on 2 L nasal cannula. Last recorded saturation 98%. He has had 2428 in, 1875 out per void. Labs: This a.m., sodium 138, potassium 3.3, chloride 103, CO2 21, BUN 39, creatinine 2.6, glucose 151, anion gap 14, calcium 7.9, phosphorus 3, albumin 2.3. Previous hemoglobin 9.6 on the 10th. PHYSICAL EXAMINATION: General: This is a 56-year-old male. He is currently resting in bed. He is in no acute distress. Skin: Warm and dry. HEENT: Normocephalic, atraumatic. Conjunctivae pale. He has NIRAV. Mucous membranes are moist. Neck: Supple. Trachea midline. Unable to determine JVD due to body positioning. Cardiovascular: He is regular rate and rhythm without murmur or gallop. Lungs: Clear to auscultation anteriorly. He is on room air. Abdomen: Round, soft, nontender. Positive bowel sounds. Genitourinary: Not inspected. He has adequate void. Extremities: She has trace pretibial edema. Neurological: He is alert and oriented x3. ASSESSMENT AND PLAN: Acute kidney injury on chronic kidney disease. Unknown baseline creatinine. Patient continues to improve with IV fluids. He is eating well. He is voiding well. We will plan to stop his fluids today. There are no indications for further intervention from our perspective. We will plan for follow up in our office within 2 weeks upon discharge. Please call us at any time during this hospitalization if there is any further need for our assistance. I would like to thank you for allowing us to follow with this patient. Seen, data reviewed, discussed with Vandana Peraza on 01/07/17. I agree with the above assessment and plan of care. rg Dictated by AMANDA Carrasco for Carlos Ruth MD cc: AMANDA Carrasco MD [facility]
[2017-01-08] MEDS: ROCEPHIN 1 GM/NS 1 GM/50 ML IVPB IV SCH (01:54)
[2017-01-08] MEDS: DUONEB (A & A) INH PRN ×6 (03:25→23:05)
[2017-01-08] MEDS ORDERED: TUSSIONEX LIQUID PO ONE ×2 (03:51→23:01)
[2017-01-08 05:38] LABS: ALBUMIN 2.4 g/dL (3.5-5.0); POTASSIUM 3.4 mmol/L (3.5-5.1)
[2017-01-08] MEDS: PRILOSEC PO SCH (06:11)
[2017-01-08] MEDS: HUMULIN R SUBQ SCH ×4 (06:11→20:42)
[2017-01-08] MEDS: HEPARIN SUBQ SCH ×2 (08:17→20:43)
[2017-01-08] MEDS: ASPIRIN PO SCH (08:17)
[2017-01-08] MEDS: LASIX IV SCH (08:17)
[2017-01-08] MEDS: NORVASC PO SCH (08:17)
[2017-01-08] MEDS: LIPITOR PO SCH (08:17)
--- NOTE | 2017-01-08 09:16 | PROGRESS NOTE ---
DATE: 01/08/2017 SUBJECTIVE: He is feeling better. He is still coughing. He says he needs to get back to work, so we will see if we can get him set up to go home in the morning. He is feeling a little stronger, less pain in the chest. OBJECTIVE: Vital Signs: Temperature is 97.9 degrees, pulse 85, respirations 18, blood pressure 160/67. His O2 saturation was 98%. Lungs: Clear in all lung lee. Cardiovascular: Regular rhythm and rate without murmur or S3. Abdomen: Soft. Skin: Warm and dry. Blood Sugars: 162, 249, 239. ASSESSMENT AND PLAN: 1. Chest pain. Lexiscan showed a fixed inferior defect, suspect underlying coronary artery disease. It would probably be hodgson to get a left heart catheterization at some point. At this point, we are going to treat him medically. Follow up with Cardiology. 2. Renal insufficiency. Suspect chronic kidney disease, acute on chronic. I suspect we are approaching baseline with his creatinine. 3. A CT scan showed some nodular densities and infiltrates and pneumonia, which are improving. We will continue his antibiotics. I think we can probably send him home tomorrow with oral antibiotics and see if he is eligible for oxygen. DIAGNOSTIC DATA: His blood work today, sodium 139, potassium 3.4, chloride 102, creatinine 2.8. ORDERS: I do not see any change at this point. We need to try and find some medication and make sure he can afford it. I am going to see if we can get him set up to go home tomorrow, and we will see if he is eligible for oxygen. cc: Yazan Rubio MD
--- NOTE | 2017-01-08 10:13 | Diag Imaging Result Doc PS360 ---
EXAM: CHEST-2 VIEWS HISTORY: pneumonia TECHNIQUE: COMPARISON: 01/03/2017 FINDINGS: The lungs are hyperexpanded. The heart is not enlarged. The vessels are not distended. Mild increased interstitial markings in the left base. Questionable tiny effusion. IMPRESSION: Small left basilar infiltrate versus atelectasis. Electronically signed by Vikas Palmer 01/08/2017 10:11 AM
[2017-01-08 10:19] LABS: ALLEN TEST YES; BE -0.5 mmoll (-3.0-3.0); BLOOD TYPE ARTERIAL; DRAW SITE R RADIAL; METHB 1.2 % (0.0-1.5); O2(CT) 12.3 mL/dL (15.0-23.0); PCO2(98.6) 39 mmHg (35-45); PO2(98.6) 74 mmHg (60-100); SAMPLE BLOOD; SAO2 96.9 % (95.0-100.0); THB 9.2 g/dL (11.5-17.4)
[2017-01-08 10:20] LABS: MODALITY ROOM AIR
[2017-01-09] MEDS: DUONEB (A & A) INH PRN ×3 (03:02→12:02)
[2017-01-09] MEDS: ROCEPHIN 1 GM/NS 1 GM/50 ML IVPB IV SCH (03:06)
[2017-01-09 05:52] LABS: ALBUMIN 2.6 g/dL (3.5-5.0); CALCIUM 8.1 mg/dL (8.8-10.2); POTASSIUM 3.7 mmol/L (3.5-5.1)
[2017-01-09] MEDS: HUMULIN R SUBQ SCH ×2 (06:09→11:37)
[2017-01-09] MEDS: PRILOSEC PO SCH (06:09)
[2017-01-09] MEDS: HEPARIN SUBQ SCH (08:26)
[2017-01-09] MEDS: LIPITOR PO SCH (08:26)
[2017-01-09] MEDS: ASPIRIN PO SCH (08:26)
[2017-01-09] MEDS: LASIX IV SCH (08:26)
[2017-01-09] MEDS: NORVASC PO SCH (08:26)
[2017-01-09 11:30] VITALS: BP 151/66
--- NOTE | 2017-01-09 15:16 | PROGRESS NOTE ---
DATE: 01/09/2017 SUBJECTIVE: The patient is feeling better today. Still does not like a lot of nurses and staff. Denies any fever or chills. Denies having any nausea, vomiting, or diarrhea. OBJECTIVE: Vital signs: Blood pressure 151/66, pulse of 87, respiration 18, temperature 98.5 degrees, saturations of 93% in room air and 98% on 3 L of nasal cannula. General appearance: Well-developed, well-nourished male, in no acute distress. HEENT: Anicteric sclerae and conjunctivae. Neck: Supple. No JVD. No bruits. Cardiovascular: S1, S2. Normal rate and rhythm. No murmur, rubs, or gallops. Pulmonary: Clear to auscultation bilaterally. GI: Soft, nontender, nondistended. Normoactive bowel sounds. Musculoskeletal: No clubbing, cyanosis, or edema. DIAGNOSTIC DATA: Laboratory: Sodium 141, potassium 3.7, chloride 103, bicarb 22, BUN 33, creatinine 2.9, glucose of 179. WBC 10.57, hemoglobin 9.6, hematocrit of 28.0, platelets of 244,000. A nuclear medicine stress test was done in the hospital and no additional intervention needed with an ejection fraction of 35%. ASSESSMENT AND PLAN: This is a 56-year-old white male, admitted to the hospital for chest pain. 1. Chest pain. Resolved. Probably stable angina. No additional intervention by Cardiology. 2. Echocardiogram was done, the patient does have systolic heart failure. We will put him on Lasix. 3. Diabetes. We have asked the patient to watch his diet and get his diabetes under control. 4. Pneumonia. We will keep the patient on Omnicef for the next 10 days. 5. We will discharge the patient home today.
--- NOTE | 2017-01-09 15:50 | DISCHARGE SUMMARY ---
ADMISSION DATE: 01/03/2017 DISCHARGE DATE: CONSULTATIONS: 1. Jarrod Daly MD of Cardiology. 2. Harmony Hazel MD of Pulmonology. 3. Carlos Ruth MD of Nephrology. PERTINENT PROCEDURES: 1. V/Q scan showed low probability for pulmonary emboli. 2. Chest CT showed multifocal small patchy nodular infiltrates. 3. Renal ultrasound was normal. 4. Myocardial perfusion scan showed moderate size severe intensity fixed defect located in the anterior apical, inferior mid, inferior base. The defect is fixed and moderate to severe in intensity, consistent with scar. Reduced EF of 35% with end-diastolic of 194 , and end- systolic of 126. Severe akinesis noted along with LV dilatation. DISCHARGE DIAGNOSES: 1. Chest pain. The patient underwent a Lexiscan that showed a fixed inferior defect. Suspected underlying coronary artery disease. They are going to treat medically at this point. Will need a left heart catheterization in the future. Followup with Cardiology. 2. Renal insufficiency. Suspected acute kidney injury on chronic kidney disease , unknown baseline creatinine. The patient continues to improve. He is voiding and will followup with Nephrology in 2 weeks upon discharge. 3. Pneumonia. Continue p.o. antibiotics, followed by pulmonology. 4. Diabetes mellitus type 2. Continue home medications. 5. Hypercholesterolemia. Continue home medications. 6. Congestive heart failure exacerbation. Followed by cardiology. Improved. HOSPITAL COURSE: Mr. Mcneill is a 56-year-old male, with a history of diabetes mellitus type 2, hypertension, who presented [facility] the [facility] with 2 days of chest pain, productive cough, decreased appetite, associated with nausea, but no vomiting. The pain was pressure-like, sometimes stabbing midsternal chest pain, associated with shortness of breath. He was evaluated in the ED and found to have elevated troponins, as well as cardiac enzymes. A V /Q scan was negative for PE. He does know that he has chronic kidney disease, but he was unsure of the stage or what his creatinine levels were. The patient was admitted for chest pain, CHF exacerbation, and acute on chronic kidney disease. He is admitted to [facility]. He was gently diuresed. Put on strict I Os. His cardiac enzymes were trended. Cardiology was consulted. He underwent a V/Q scan that showed no PE, as well as a perfusion scan by Cardiology that showed a moderate sized severe intensity fixed defect located in the inferior apical, inferior mid, and inferior base. It was moderate to severe intensity, consistent with scar, with a reduced EF of 35% . He was started on antibiotics for his pneumonia. His kidney function improved with IV fluids. The patient is going to be treated medically by Cardiology. They will followup within the month and at some point, scheduled for left heart catheterization, as well as followup with Dr. Ruth in 2 weeks. Discharged on p.o. antibiotics. Clinically, the patient has improved. He is appropriate for discharge. VITAL SIGNS: Temperature is 98.5 degrees, heart rate 87, respirations 18, blood pressure 151/66, O2 98%. DISCHARGE DIET: Diabetic. DISCHARGE MEDICATIONS: 1. Norvasc 10 mg p.o. daily. 2. Aspirin 325 mg p.o. daily. 3. Omnicef 300 mg p.o. daily for 10 days. 4. Lasix 40 mg p.o. daily. 5. Humalog 70/30, 30 units subcutaneous q.a.m., 70/30 12 units subcutaneous q.p.m. 6. Pravachol 40 mg p.o. at bedtime. FOLLOWUP: The patient is being discharged home with self care. He will follow up with Dr. Daly in 4-6 weeks, as well as Dr. Ruth in 2 weeks with a renal CBC, IPTH, microalbumin/creatinine ratio N18.4 and I12.9. He can return to the ED for any worsening of symptoms. He has been provided with a list of primary care physicians are taking new patients. He will need to follow up in 7-10 days. Patient can return to the ED for any worsening of symptoms. DISCHARGE TIME: Thirty-minutes. Dictated by AMANDA Talavera for Kendrick Street MD Addendum: I personally evaluated and examined the patient in conjunction to the [employer] and agreed with her disposition JAMES
== END 2017-01-09 16:41 | disposition home or self-care (01) ==
LOC: ED 17:13 → 3S 22:32 → SUATTDRO 22:32 → 3S 23:00
PROVIDERS: ATTEND Internal Medicine

== ENCOUNTER 2017-01-29 14:51 | Inpatient (IN) ==
--- NOTE | 2017-01-29 16:28 | PROVIDER DOCUMENTATION ---
HPI-Rash/Wound/ReCheck - General Chief Complaint: Extremity Pain Stated Complaint: RT TOE PAIN Time Seen by Provider: 01/29/17 16:09 Source: patient, family Allergies/Adverse Reactions: Allergies Allergy/AdvReac Type Severity Reaction Status Date / Time Androgenic Anabolic Steroid Allergy Unknown Verified 01/29/17 15:56 diclofenac [From Cataflam] Allergy ITCHING Verified 01/29/17 15:56 morphine Allergy SWELLING Verified 01/29/17 15:56 Home Medications: Home Medication List Medication Instructions Recorded Confirmed Last Taken Type Insulin Humulin 70/30 [Humulin 12 unit SUBQ QPM 09/25/16 01/03/17 09/24/16 History 70/30] Insulin Humulin 70/30 [Humulin 30 unit SUBQ QAM 09/25/16 01/03/17 09/24/16 History 70/30] Amlodipine [Norvasc] 10 mg PO DAILY #30 tablet 10/01/16 01/03/17 01/03/17 12:00 Rx Aspirin 325 mg PO DAILY tablet 01/09/17 Unknown Rx CefDINIR [Omnicef] 300 mg PO DAILY #10 capsule 01/09/17 Unknown Rx Furosemide [Lasix] 40 mg PO DAILY #30 tablet 01/09/17 Unknown Rx PRAVAstatin [Pravachol] 40 mg PO QHS #30 tablet 01/09/17 Unknown Rx - History of Present Illness-Dermatology Nature of Presenting Problem: 56 year old male presents with c/o pain, swelling to right 3rd toe for 3 days. pt reports 3 days ago he noticed a blsiter on the distal tip. Last night it popped and he was drying it off and the tip portion came off. pt reports yellow purulent drainage at home. denies fever, chills, NVD. he reports his FSBG have been in the 100's. PMH: [facility] 1 mo ago, pt reports he has no followed up because he does not have insurance or the money to pay lewis; right great toe ampuation in August for osteomylitis. Location: reports: feet (toes) Quality: reports: painful Severity: reports: mild Onset/Duration: reports: 3 days ago Timing: reports: still present, constant, getting worse Context/Associated Symptoms: reports: abscess, blisters, change in skin texture , tender area Identifiable cause?: No Exposure: reports: unknown cause Locality of Occurance: Home Similar Symptoms Previously?: Yes Recently seen or treated by another doctor?: Yes Review of Systems - Adult - REVIEW OF SYSTEMS - ADULT Constitutional: reports: no symptoms reported. denies: chills, fever, fatique Eyes: reports: no symptoms reported. denies: discharge, blurred vision, double vision Ears, Nose, Mouth & Throat: reports: no symptoms reported. denies: ear discharge, ear pain, nose pain, loose teeth, throat pain, throat swelling Cardiovascular: reports: no symptoms reported. denies: chest pain, palpitations , syncope Respiratory: reports: no symptoms reported. denies: chronic cough, cough, shortness of breath, wheezing Gastrointestinal: reports: no symptoms reported. denies: abdominal pain, diarrhea, nausea, vomiting Genitourinary: reports: no symptoms reported. denies: dysuria, hematuria, urgency Musculoskeletal: reports: see HPI, bone pain, joint pain, joint swelling. denies: back pain, frequent leg cramps, muscle aches, muscle weakness, neck pain Integumentary: reports: see HPI, skin sores/ulcer (right 2nd toe). denies: hives, itching Neurological: reports: no symptoms reported. denies: ataxia, numbness, paresthesia Psychiatric: reports: no symptoms reported Endocrine: reports: no symptoms reported Hematologic/Lymphatic: reports: no symptoms reported Allergic/Immunologic: reports: see HPI, frequent infections All Other Systems: Reviewed and Negative Past History - Adult - PAST MEDICAL HISTORY-ADULT Review of Records: reports: Old Records Reviewed, Nursing Assessment Review, Medications Reviewed, Social history reviewed & non-contributory. Major Childhood Illnesses: reports: denies history Cardiovascular: reports: CAD, HTN, hyperlipidemia, [facility] Respiratory: reports: denies history Gastrointestinal: reports: denies history Obstetrical/Gynecological: reports: denies history Genitourinary: reports: denies history Musculoskeletal: reports: orthopedic injury (amputations) Neurological: reports: denies history Endocrine/Immune: reports: Diabetes Diabetes Type: Type 2 Diabetes controlled by:: PO Meds, Insulin Dependent Other Conditions: reports: denies history - PRIOR SURGERIES/PROCEDURES Surgical/Procedure History: reports: recent surgery, orthopedic (extremity) - IMMUNIZATION STATUS Childhood Immunizations: See Nurse Assessment Flu Vaccine: See Nurse Assessment - FAMILY HISTORY Family History: reviewed, not pertinent - SOCIAL HISTORY Smoking: cigarettes Provider spent 3-5 mins advising pt. on dangers of tobacco.: Discussed manners to quit use, and f/u contacts for add'l counseling. Substance Use: none/never Alcohol Use Frequency: never Physical Exam-General - PHYSICAL EXAM-ADULT Initial Vital Signs Reviewed: Yes - CONSTITUTIONAL General Appearance: appears well, alert, no apparent distress, obese - EYES Eyes: pink conjunctivae - HEAD, EARS, NOSE, MOUTH & THROAT HENMT: normocephalic/atraumatic, moist mucous membranes - NECK Neck: non-tender, full range of motion, supple, normal inspection, Brudzinski's sign - RESPIRATORY Respiratory: chest non-tender, lungs clear, normal breath sounds, no pleuratic chest pain, no respiratory distress, no accessory muscle use. negative: respiratory distress, decreased breath sounds, accessory muscle use, crackles, rales, rhonchi, stridor, wheezing - CARDIOVASCULAR Cardiovascular: normal peripheral pulses, regular rate, rhythm - GASTROINTESTINAL (ABDOMEN) Abdominal Exam: non tender, soft - MUSCULOSKELETAL Back Exam: normal inspection Extremity: normal inspection, normal capillary refill, pelvis stable, erythema ( right 2nd toes with wound to), pedal edema (+1 pedal edema), swelling (mid foot up through the 4 toes with swelling/tenderness), tenderness. negative: normal range of motion, non-tender, normal gait, no pedal edema, abnormal NV exam, calf tenderness, deformity, pulse deficit, slow capillary refill Peripheral Pulses: radial (R): 3+, radial (L): 3+, dorsalis-pedis (R): 2+, dorsalis-pedis (L): 2+ - SKIN Integumentary: normal color, normal turgor, warm/dry, erythema (mid foot through the toes), swelling, tenderness - NEUROLOGIC Neurologic: grossly normal, no motor/sensory deficits - PSYCHIATRIC Psych/Mental Status: normal mood/affect, normal thought content, normal thought process, oriented x 3 Progress - PLAN OF CARE/RESULTS Progress/Plan/Lab Results: Vital Signs - 8 hr 01/29/17 15:06 01/29/17 17:32 Temperature 98.1 F 98.2 F Pulse Rate 87 76 Respiratory Rate 16 16 Blood Pressure 162/80 159/85 O2 Sat by Pulse Oximetry 100 100 Laboratory Results - last 24 hr 01/29/17 01/29/17 16:55 16:55 WBC 7.36 RBC 3.41 L Hgb 10.1 L Hct 29.1 L MCV 85.3 MCH 29.6 MCHC 34.7 RDW Std Deviation 13.8 Plt Count 306 MPV 9.2 Immature Gran % (Auto) 0.0 Neut % (Auto) 67.2 Lymph % (Auto) 20.9 [place] % (Auto) 6.0 Eos % (Auto) 4.8 Baso % (Auto) 1.1 H Immature Gran # (Auto) 0.00 Neut # (Auto) 4.95 Lymph # (Auto) 1.54 [place] # (Auto) 0.44 Eos # (Auto) 0.35 Baso # (Auto) 0.08 Sodium 136 Potassium 4.5 Chloride 103 Carbon Dioxide 21 L Anion Gap 12 BUN 46 H Creatinine 2.9 H Estimated GFR/1.73 m2 23 BUN/Creatinine Ratio 16 Glucose 109 H Calculated Osmolality 284 Calcium 8.7 L Total Bilirubin 0.17 L AST 20 ALT 24 Alkaline Phosphatase 103 Total Protein 8.1 Albumin 3.2 L Globulin 4.9 Albumin/Globulin Ratio 0.7 Orders Category Date Time Status Saline Loc NOW Care 01/29/17 17:59 Active CHEST-2 VIEWS [RAD] Stat Exams 01/29/17 18:00 Ordered TOE(S)-RIGHT [RAD] Stat Exams 01/29/17 16:26 Completed ACETONE SERUM [CHEM] Stat Lab 01/29/17 16:55 Results CBC WITH ELECTRONIC DIFF [HEME] Stat Lab 01/29/17 16:55 Completed CMP [COMPREHENSIVE METABOLIC PANEL] [CHEM] Stat Lab 01/29/17 16:55 Results UA NIMS W/REFLEX CULT [URINALYSIS] Stat Lab 01/29/17 18:00 Uncollected Vancomycin 1 gm/Ns Med 01/29/17 17:59 Active 1 gm in 250 ml IV NOW EKG [EKG] Stat Ther 01/29/17 18:00 Ordered Laboratory Tests 01/29/17 01/29/17 16:55 16:55 WBC 7.36 RBC 3.41 L Hgb 10.1 L Hct 29.1 L MCV 85.3 MCH 29.6 MCHC 34.7 RDW Std Deviation 13.8 Plt Count 306 MPV 9.2 Immature Gran % (Auto) 0.0 Neut % (Auto) 67.2 Lymph % (Auto) 20.9 [place] % (Auto) 6.0 Eos % (Auto) 4.8 Baso % (Auto) 1.1 H Immature Gran # (Auto) 0.00 Neut # (Auto) 4.95 Lymph # (Auto) 1.54 [place] # (Auto) 0.44 Eos # (Auto) 0.35 Baso # (Auto) 0.08 Sodium 136 Potassium 4.5 Chloride 103 Carbon Dioxide 21 L Anion Gap 12 BUN 46 H Creatinine 2.9 H Estimated GFR/1.73 m2 23 BUN/Creatinine Ratio 16 Glucose 109 H Calculated Osmolality 284 Calcium 8.7 L Total Bilirubin 0.17 L AST 20 ALT 24 Alkaline Phosphatase 103 Total Protein 8.1 Albumin 3.2 L Globulin 4.9 Albumin/Globulin Ratio 0.7 Orders Category Date Time Status Saline Loc NOW Care 01/29/17 17:59 Active CHEST-2 VIEWS [RAD] Stat Exams 01/29/17 18:00 Ordered TOE(S)-RIGHT [RAD] Stat Exams 01/29/17 16:26 Completed ACETONE SERUM [CHEM] Stat Lab 01/29/17 16:55 Results CBC WITH ELECTRONIC DIFF [HEME] Stat Lab 01/29/17 16:55 Completed CMP [COMPREHENSIVE METABOLIC PANEL] [CHEM] Stat Lab 01/29/17 16:55 Results UA NIMS W/REFLEX CULT [URINALYSIS] Stat Lab 01/29/17 18:00 Uncollected Vancomycin 1 gm/Ns Med 01/29/17 17:59 Active 1 gm in 250 ml IV NOW EKG [EKG] Stat Ther 01/29/17 18:00 Ordered Vital Signs - 24 hr 01/29/17 15:06 01/29/17 17:32 Temperature 98.1 F 98.2 F Pulse Rate 87 76 Respiratory Rate 16 16 Blood Pressure 162/80 159/85 O2 Sat by Pulse Oximetry 100 100 Reviewed H&P, radiology with Dr. Bosch, agrees with admission, plan of care, treatment.-supervisory Result Diagrams: 01/29/17 16:55 01/29/17 16:55 - CONSULTS/PCP/HOSPITALIST Notification #1 *Consult/PCP/Hospitalist*: Dr. Kristina mcmahon Time Discussed: 18:01 (via nailing machine operator) #2 Consult: Dr. Acevedo Time Discussed: 18:17 Consult Disposition: Will see in ED, Admit Departure - Departure Date of Disposition Decision: 01/29/17 Time of Disposition Decision: 17:44 DIAGNOSIS: Diabetic foot ulcer with osteomyelitis Disposition: ADMITTED INPATIENT 09 Certified Medical Emergency: Emergent Condition: Stable Referrals and Follow-Ups: None,PCP [Primary Care Provider] - - Critical Care Note This patient required my direct & personal management of CC.: No Attestation - Physician/ TAYLOR Attestation Patient care was provided by Advanced Practice Provider:: Yes Advanced Practice Provider:: Branden Diaz Advanced Practice Provider documentation review:: The Mid-level provider documentation, treatment plan and medical decision making was reviewed by the physician who agrees with all treatment and medical decision making by the MLP.
--- NOTE | 2017-01-29 16:55 | Diag Imaging Result Doc PS360 ---
TOE(S)-RIGHT - 01/29/2017 INDICATION: right 3rd toe pain; wound, diabetic TECHNIQUE: Three views COMPARISON: 09/24/2016 FINDINGS: There has been amputation of the great toe. At the third toe, there is soft tissue swelling and ill-defined erosion at the tuft of the distal phalanx. This is highly concerning for osteomyelitis. No soft tissue gas. No fracture or dislocation. IMPRESSION: Probable osteomyelitis at the tuft of the third toe. Electronically signed by Tu Bobo 01/29/2017 4:53 PM
[2017-01-29 17:08] LABS: MANUAL DIFF NEEDED? NO
[2017-01-29 17:12] LABS: BASO% 1.1 % (0.0-0.8); EOS# 0.35 X1000 (0.0-0.7); EOS% 4.8 % (0.0-10.0); HEMATOCRIT 29.1 % (42.0-52.0); HEMOGLOBIN 10.1 g/dL (14.0-18.0); LYMPH# 1.54 X1000 (1.2-3.4); LYMPH% 20.9 % (20.5-51.1); MCH 29.6 PG (27-31); MCHC 34.7 g/dL (33-37); MCV 85.3 FL (81-99); MONO# 0.44 X1000 (0.11-0.59); MPV 9.2 FL (7.4-10.4); NEUT% 67.2 % (42.2-75.2); PLT 306 X1000 (130-400); RBC 3.41 XMIL (4.7-6.1)
[2017-01-29 17:53] LABS: AGAP 12; ALBUMIN 3.2 g/dL (3.5-5.0); ALKALINE PHOSPHATASE 103 U/L (32-122); BUN 46 mg/dL (8-22); CALCIUM 8.7 mg/dL (8.8-10.2); CHLORIDE 103 mmol/L (98-107); COSMO 284; GOT 20 U/L (10-34); GPT 24 U/L (10-44); POTASSIUM 4.5 mmol/L (3.5-5.1); SODIUM 136 mmol/L (136-145); TCO2 21 mmol/L (25-35); TOTAL BILIRUBIN 0.17 mg/dL (0.20-1.00); TOTAL PROTEIN 8.1 g/dL (6.3-8.3)
[2017-01-29] MEDS ORDERED: VANCOMYCIN 1 GM/NS 1 GM/250 ML IVPB IV ONE ×2 (17:59→21:00)
[2017-01-29 18:29] LABS: ACETONE SERUM NEGATIVE (NEGATIVE)
[2017-01-29] MEDS ORDERED: VANCOMYCIN IV PER PHARMACY MISC SCH (20:00)
--- NOTE | 2017-01-29 20:33 | HISTORY AND PHYSICAL ---
CHIEF COMPLAINT: Right middle toe pain, swelling and deroofing of superficial ulceration. HISTORY OF PRESENT ILLNESS: This is a 56-year-old gentleman who is very upset at baseline but has not had a very good last several months. Apparently, he had a right great toe amputated. Then he was admitted on the for a CHF exacerbation. He claims he had an acute myocardial infarction but I think he had elevated troponins which were not felt to be consistent with acute myocardial infarction, but related to his renal dysfunction and CHF. However, echocardiogram showed a fairly intact ejection fraction. In any case, he was showering today, bent down to clean his toe and then deroofed, the tip of the toe just basically came off. He noted purulent drainage. He got very upset because he this is a similar process to what happened when he had his right toe infection, but at that time, I think that infection had gangrene and other issues. Workup in the ER this time, no white count. Plain films were abnormal though, felt by Dr. Bobo to have early osteomyelitis in the distal phalanx. That being said, he has not had a wound there. This was just noted today, but he was admitted for osteomyelitis, diabetic foot ulcer, in any case. PAST MEDICAL HISTORY: 1. Diabetes, insulin dependent. 2. Hypertension. 3. Reported CHF, although I think at this point and it is diastolic. 4. Chronic renal failure stage 3. PAST SURGICAL HISTORY: Right great toe amputation. Appendectomy. ALLERGIES: Steroids, diclofenac, and morphine. SOCIAL HISTORY: No tobacco or ethanol. FAMILY HISTORY: No coronary artery disease. REVIEW OF SYSTEMS: Ten point review of system reviewed. Otherwise negative. PHYSICAL EXAMINATION: VITAL SIGNS: Blood pressure 159/85, heart rate 76, respiratory rate 16, temperature degrees 98.2 degrees, 100% on room air. GENERAL: A well-developed male, in no acute distress. HEAD: Normocephalic, atraumatic. EYES: Pupils equal, round, reactive to light. Extraocular movements were intact. EAR/NOSE/THROAT: He had moist mucous membranes. NECK: Supple. CARDIOVASCULAR: Regular rate and rhythm. PULMONARY: Bilateral breath sounds. Clear to auscultation. GI: Soft, nontender, nondistended. Bowel sounds are positive. EXTREMITIES: No clubbing or cyanosis. LYMPHATICS: No peripheral edema. NEUROLOGICAL: Nonfocal. SKIN: He did have on the right great toe his incision looked healed in his right great toe. The 3rd toe had pretty much a denuded area at the tip of the toe with granulation tissue surrounding central white area, I think was the tip of his phalanx that was exposed, but there was no purulent drainage and there was no smell. Granted the wound may have been cleaned at this point. ASSESSMENT: A 56-year-old male diabetic with coronary artery disease, hypertension, presenting with diabetic foot ulcer, possible early osteomyelitis. 1. Diabetic foot ulcer. Early osteomyelitis. We are going to start antibiotics, vancomycin and Zosyn and follow clinically. We will do our best to try to avoid another amputation. He does have good dorsalis pedis pulses to that area. I am presuming we have evaluated him for peripheral vascular disease previously. I do not have evidence of that per se, but we will get Dr. Salas to evaluate if he needs debridement. Hopefully, we can avoid another amputation. At this point, I do not feel there is any gangrene or acute necrosis, and he may be able to get by with IV antibiotics versus another amputation. We will continue to follow. 2. Diabetes. Continue his insulin and follow closely. Sliding scale. Check a hemoglobin A1c. 3. Recent heart failure episode, but does not have evidence of acute myocardial infarction and again his ejection fraction is fairly intact. We will monitor his fluid status and continue his regular medications. Patient is unattached. He was supposed to follow up with Cardiology, but has not done so at this point. cc: Duke Acevedo MD
[2017-01-29] MEDS ORDERED: NORCO-7.5 PO PRN (20:55)
[2017-01-29] MEDS ORDERED: ZOFRAN IV PRN (20:55)
[2017-01-29] MEDS ORDERED: LOVENOX SUBQ SCH (21:00)
[2017-01-29] MEDS: TYLENOL PO PRN (21:55)
[2017-01-29] MEDS: HUMULIN R SUBQ SCH (21:56)
[2017-01-29] MEDS: ZOSYN 2.25 GM/NS 2.25 GM/50 ML IVPB IV SCH (21:56)
[2017-01-30 00:33] LABS: URINE CULTURE NEEDED? NO; URINE MICRO REVIEW NEEDED? NO; URINE SOURCE CLEAN CATCH
[2017-01-30 00:37] LABS: BILIRUBIN URINE NEGATIVE (NEGATIVE); BLOOD URINE SMALL (NEGATIVE); COLOR STRAW; GLUCOSE URINE 100 mg/dL (NEGATIVE); LEUKOCYTES URINE NEGATIVE (NEGATIVE); NITRITE URINE NEGATIVE (NEGATIVE); PH URINE 6.5; PROTEIN URINE 300 mg/dL (NEGATIVE); SP GRAVITY URINE 1.009; TURBIDITY URINE CLEAR (CLEAR); UR EPITHELIAL CELLS <10 /HPF (<10); URINE BACTERIA NEGATIVE /HPF; URINE RBC <10 /HPF (<10); URINE WBC <10 /HPF (<10); UROBILINOGEN URINE NORMAL (NORMAL)
[2017-01-30] MEDS: ZOSYN 2.25 GM/NS 2.25 GM/50 ML IVPB IV SCH ×4 (03:00→19:59)
[2017-01-30] MEDS: HUMULIN R SUBQ SCH ×4 (06:07→19:59)
[2017-01-30 06:19] LABS: HEMATOCRIT 25.5 % (42.0-52.0); HEMOGLOBIN 8.6 g/dL (14.0-18.0); MCH 29.5 PG (27-31); MCHC 33.7 g/dL (33-37); MCV 87.3 FL (81-99); MPV 9.5 FL (7.4-10.4); RBC 2.92 XMIL (4.7-6.1)
[2017-01-30 06:46] LABS: CALCIUM 8.2 mg/dL (8.8-10.2); POTASSIUM 4.2 mmol/L (3.5-5.1)
--- NOTE | 2017-01-30 06:48 | CONSULTATION ---
DATE OF CONSULTATION: 01/30/2017 REQUESTING PHYSICIAN: Dr. Acevedo. CONSULT CONCERNING: Right 3rd toe diabetic foot ulcer. HISTORY OF PRESENT ILLNESS: A 56-year-old, male who is well known to me, who I had amputated his right great toe previously, who has multiple medical comorbidities. Reports that in the last several days, he has noticed a blister on his right 3rd digit. This has opened up when he was in the shower and came to the emergency department. He said he noticed some purulent drainage and some smell. He was evaluated in the emergency department and had normal white count. Plain films, though, were felt to be a potential for early osteomyelitis. I was asked to evaluate the patient. Reports that, again, this has only been going on for 3 days. PAST MEDICAL HISTORY: 1. Diabetes mellitus type 1. 2. Hypertension. 3. Reported CHF which may be diastolic. 4. Chronic kidney disease, stage 3. PAST SURGICAL HISTORY: Includes previous right great toe amputation appendectomy. ALLERGIES: Steroids, diclofenac, morphine. SOCIAL HISTORY: Denies alcohol, tobacco or illicit drugs. FAMILY HISTORY: No coronary artery disease. REVIEW OF SYSTEMS: A full 10-point review of systems obtained, and negative except as those specified in HPI. MEDICATIONS: Of note, patient is currently on vancomycin and Zosyn. PHYSICAL EXAMINATION: Vital Signs: Patient is currently afebrile. His vital signs have been stable. General: No acute distress. male, looks stated age. HEENT: Normocephalic, atraumatic. Pupils equal, round, react to light. Mucous membranes moist. Oropharynx benign. Neck: Supple. Trachea midline. Cardiovascular: Regular rate and rhythm. Lungs: Grossly clear. Abdomen: Soft, nontender, nondistended. Extremities: Chronic changes noted to the right foot with the toes being somewhat altered secondary to his great toe amputation. He does have a small 1 cm x 1 cm wound to the distal aspect of his 3rd digit on the right side. I could not express any purulence. There is no real streaking erythema. It does look like his toes have positioned, as this is the point of pressure when he walks. Vascular of all extremities perfused. Neurologic: Grossly intact. Skin: As noted above from the right great toe. LABORATORY/DIAGNOSTIC DATA: Laboratories from yesterday were reviewed. White blood count 7, hematocrit 29. Remainder of labs reviewed. X-rays reviewed too. ASSESSMENT/PLAN: A 56-year-old, male with diabetes, now with potential diabetic foot ulcer. 1. Diabetic foot ulcer. At this time, I am unsure if he actually has osteomyelitis versus chronic wear and tear of this toe secondary to its repositioning and pressure. His wound does not seem to tract down to the bone from what I can gather. He is on vancomycin and Zosyn. I think we can avoid an amputation. I will try Santyl to help debride the wound. I do not think it needs surgical debridement at this time. We will continue to follow. I have put the order in for the Santyl. 2. Diabetes. At this time, being managed by the hospitalist service. 3. Other medical comorbidities being managed by the hospitalist service. I appreciate the consult. I will continue to follow with you. cc: Eliceo Salas MD
[2017-01-30 06:56] LABS: HEMOGLOBIN A1C 7.3 % (4.8-6.0)
--- NOTE | 2017-01-30 07:14 | Diag Imaging Result Doc PS360 ---
CHEST-2 VIEWS - 01/29/2017 INDICATION: admission TECHNIQUE: COMPARISON: 01/08/2017 FINDINGS: There is improvement in the small left basilar infiltrate in the lower lobe best seen on the lateral view of the previous x-ray. There is some linear atelectasis in the lingula, but at this point the lungs are clear of infiltrate. Heart size is borderline. No pneumothorax or pleural effusion. IMPRESSION: No acute disease. Electronically signed by Tu Bobo 01/30/2017 7:12 AM
[2017-01-30] MEDS: SANTYL OINT TOP SCH (09:35)
[2017-01-30] MEDS: TYLENOL PO PRN (09:51)
[2017-01-30] MEDS ORDERED: LOVENOX SUBQ SCH (17:00)
[2017-01-30] MEDS ORDERED: INSULIN PEN NEEDLES ONE (17:11)
[2017-01-30] MEDS ORDERED: TEARISOL OPH SOLUTION BOTH EYES PRN (19:43)
[2017-01-30] MEDS: LOVENOX SUBQ SCH (19:59)
[2017-01-30] MEDS: PRAVACHOL PO SCH (19:59)
[2017-01-30] MEDS ORDERED: PROTONIX PO ONE (23:25)
[2017-01-31] MEDS: ZOSYN 2.25 GM/NS 2.25 GM/50 ML IVPB IV SCH ×4 (03:48→20:43)
[2017-01-31] MEDS: TYLENOL PO PRN ×2 (03:53→21:32)
[2017-01-31 06:02] LABS: HEMOGLOBIN 8.6 g/dL (14.0-18.0); MCH 29.3 PG (27-31); MCHC 33.1 g/dL (33-37); MCV 88.4 FL (81-99); MPV 9.4 FL (7.4-10.4); RBC 2.94 XMIL (4.7-6.1)
[2017-01-31 06:09] LABS: CALCIUM 8.4 mg/dL (8.8-10.2); POTASSIUM 4.2 mmol/L (3.5-5.1)
--- NOTE | 2017-01-31 06:17 | PROGRESS NOTE ---
DATE: 01/31/2017 SUBJECTIVE: The patient is doing okay. No major issues. He did report some chest pain last night. The workup by the hospitalist was essentially normal per report. OBJECTIVE: Vital Signs: The patient is currently afebrile. His vital signs are stable. General: No acute distress. Cardiovascular: Regular rate and rhythm. Lungs: Grossly clear. Abdomen: Soft, nontender, nondistended. Extremities: No real significant erythema noted to the right lower extremity at the 3rd toe. There is some eschar noted, but overall the wound looks okay. LABORATORY DATA: The laboratory from yesterday was reviewed. Of note, the patient's white blood cell count is 5. ASSESSMENT AND PLAN: A 56-year-old male with a diabetic foot ulcer. 1. Diabetic foot ulcer. At this time, continue Santyl. At this time, I do not see indication for amputation. We will continue to follow while he is here. 2. Multiple medical comorbidities, currently being managed by the hospitalist service. cc: Eliceo Salas MD
[2017-01-31] MEDS: PROTONIX PO SCH (06:38)
[2017-01-31] MEDS: HUMULIN 70/30 SUBQ SCH (06:38)
[2017-01-31] MEDS: HUMULIN R SUBQ SCH ×4 (06:39→21:26)
--- NOTE | 2017-01-31 06:50 | EKG Report ---
Test Performed on : 01/30/2017 11:20:34 PM Test Reason : chest pain Blood Pressure : / mmHG Vent. Rate : 073 BPM Atrial Rate : 073 BPM P-R Int : 174 ms QRS Dur : 102 ms QT Int : 420 ms P-R-T Axes : 017 016 033 degrees QTc Int : 462 ms Normal sinus rhythm. Normal ECG When compared with ECG of 29-JAN-2017 18:50, No significant change was found Confirmed by Loida Lopez MD ([id number]) on 01/31/2017 1:02:25 PM
[2017-01-31] MEDS ORDERED: VANCOMYCIN 1.4 GM in NS 250 ML IV SCH (09:00)
[2017-01-31] MEDS: SANTYL OINT TOP SCH ×3 (09:00→12:49)
[2017-01-31] MEDS: LASIX PO SCH (09:00)
[2017-01-31] MEDS: NORVASC PO SCH (09:00)
--- NOTE | 2017-01-31 14:31 | Diag Imaging Result Doc PS360 ---
EXAM: 3 PHASE BONE SCAN HISTORY: osteomeylitis TECHNIQUE: 26.2 mCi technetium MDP administered. COMPARISON: Compared to recent plain films from 01/29/2017. FINDINGS: Coned down images over the feet. There is increased activity within the right ankle and foot on the immediate blood flow images. This persists on the blood pool images at five, 10, and 15 minutes. This localizes along the dorsum of the midfoot on the delayed images. IMPRESSION: No definite evidence of osteomyelitis in the distal third toe. Activity in the midfoot could represent osteomyelitis or even trauma. Electronically signed by Vikas Palmer 01/31/2017 2:29 PM
[2017-01-31] MEDS: COREG PO SCH ×2 (16:00→20:44)
[2017-01-31] MEDS ORDERED: HUMULIN 70/30 SUBQ SCH (16:00)
[2017-01-31] MEDS: PRAVACHOL PO SCH (20:44)
[2017-01-31] MEDS: LOVENOX SUBQ SCH (20:44)
[2017-02-01] MEDS: ZOSYN 2.25 GM/NS 2.25 GM/50 ML IVPB IV SCH ×2 (02:30→09:59)
[2017-02-01 05:35] LABS: HEMATOCRIT 25.9 % (42.0-52.0); HEMOGLOBIN 8.7 g/dL (14.0-18.0); MCH 29.7 PG (27-31); MCHC 33.6 g/dL (33-37); MCV 88.4 FL (81-99); MPV 9.3 FL (7.4-10.4); RBC 2.93 XMIL (4.7-6.1)
[2017-02-01 05:46] LABS: CALCIUM 8.1 mg/dL (8.8-10.2); POTASSIUM 4.3 mmol/L (3.5-5.1)
[2017-02-01] MEDS: PROTONIX PO SCH (06:01)
[2017-02-01] MEDS: HUMULIN 70/30 SUBQ SCH (06:02)
[2017-02-01] MEDS: HUMULIN R SUBQ SCH ×2 (06:29→11:28)
[2017-02-01 08:06] VITALS: BP 142/73
[2017-02-01] MEDS: LASIX PO SCH (09:59)
[2017-02-01] MEDS: NORVASC PO SCH (09:59)
[2017-02-01] MEDS: SANTYL OINT TOP SCH (10:00)
[2017-02-01] MEDS: COREG PO SCH (10:00)
--- NOTE | 2017-02-01 16:04 | DISCHARGE SUMMARY ---
ADMISSION DATE: 01/29/2017 DISCHARGE DATE: 02/01/2017 ADMITTING DIAGNOSES: 1. Open wound right 3rd toe. 2. Status post amputation right great toe. 3. Diabetic. 4. Renal insufficiency. 5. Coronary artery disease with recent myocardial infarction. DISCHARGE DIAGNOSES: 1. Open wound right 3rd toe. 2. Status post amputation right great toe. 3. Diabetic. 4. Renal insufficiency. 5. Coronary artery disease with recent myocardial infarction. PRINCIPAL PROCEDURE: Toe x-ray, nuclear medicine scan, IV antibiotics and local wound care. DISCHARGE DISABILITIES, FULL DISCHARGE DISPOSITION: He is to follow up with Dr. Salas in our outpatient offices. DISCHARGE MEDICATIONS: He is to return to his home medications. Will also add a antibiotic. DISCHARGE DIET: Diabetic diet. HOSPITAL COURSE: Mr. Corby Mcneill is a 56-year-old overweight white male diabetic who was recently hospitalized with chest pain and renal insufficiency in early December 2016. He was readmitted on 01/29/2017 through the emergency department because of a wound at the tip of his right 3rd toe. X-rays suggests that he does not have osteomyelitis. He was seen by Dr. Salas in consultation. He received IV antibiotics and it was felt safe to discharge him home on 02/01/2017 after discussing wound care with him. He will follow up with Dr. Salas in our outpatient offices for his diabetic foot and 3rd toe wound. At discharge he is to keep the weight off the tip of his toes. We will give him a p.o. antibiotic. He needs to bathe his foot twice daily and examine his foot for infection daily with followup in our outpatient offices. We did discuss his renal insufficiency and also his diabetes. He understands that his diabetes has to be well controlled for wound healing. He does have good blood flow to his right foot with palpable pedal pulses. He knows to contact us with any problems. cc: Tia Moreno MD
== END 2017-02-01 14:47 | disposition home or self-care (01) ==
LOC: ED 14:51 → 4N 18:54
PROVIDERS: ATTEND Internal Medicine